=== PATIENT | female | born 1995 | race American Indian/Alaskan Native ===

== ENCOUNTER 2016-08-13 02:12 | Inpatient (IN) | payer MEDICAID ==
[2016-08-13] MEDS ORDERED: LACTATED RINGERS 500 ML IV ONE (03:03)
[2016-08-13] MEDS ORDERED: SUBLIMAZE ONE (03:37)
[2016-08-13] MEDS ORDERED: LACTATED RINGERS 1,000 ML ONE (03:44)
[2016-08-13] MEDS ORDERED: PITOCin/NS 20 UNIT/1000ML DRIP 20,000 MILLIUNITS/1,000 ML BAG IV ONE (03:45)
--- NOTE | 2016-08-13 04:10 | Procedure Note ---
OB Delivery Note - Delivery Date of Delivery: 08/13/16 Surgeon: HARRIET CARDENAS Estimated blood loss: 200cc - Vaginal Delivery presentation: vertex Delivery position: OA Intrapartum events: precipitous labor- <3hr Delivery induction: none Delivery monitor: external FHT, external uterine Route of delivery: Delivery placenta: spontaneous Delivery cord: 3 umbilical vessels Episiotomy: none Delivery laceration: none Anesthesia: none - A at 1 minute: 8 at 5 minutes: 9 Gender: Female (Del @ 04:56, weight is 6#15 or 3162 g)
--- NOTE | 2016-08-13 04:14 | History and Physical Report ---
History of Present Illness Date of examination: 08/13/16 Date of admission: 08/13/16 03:28 Chief complaint: Painful contractions History of present illness: 20 001 at 38+4 weeks presents in active labor, she to [facility] patient. Patient rapidly progressed with precipitous delivery of term infant over intact perineum. Patient gives a history of having a fainting spell in [facility], was found to have an arrhythmia and was shocked (?Cardioverted). It appears she was started on Lovenox but has not taken this in a while. I have no records at this time She does give a history of cardiac surgery in childhood, she is legally blind She is currently in normal sinus rhythm Past History Past Medical History: heart disease (oral history of Arrythmia with recent ?? cardioversion) Past Surgical History: other (cardiac surgery in infancy) [employer]ITTER [employer]TER History: denies: chlamydia, gonorrhea, hepatitis B, hepatitis C, herpes, HIV , syphilis, trichomonas Social history: single, full code. denies: smoking, alcohol abuse, prescription drug abuse, IV drug use - Obstetrical History Expected Date of Delivery: 08/23/16 Actual Gestation: 38 Week(s) 4 Day(s) : 2 Para: 1 Number of Living Children: 1 Medications and Allergies Allergies Allergy/AdvReac Type Severity Reaction Status Date / Time Neuromuscular Blockers, Allergy Unknown Verified 07/29/14 17:57 Steroidal [Steroidal Neuromuscular Blockers] Home Medications Medication Instructions Recorded Confirmed Last Taken Type Lovenox 1 dose SUB-Q BID 07/13/16 07/13/16 1 Week Ago History Pnv95/Ferrous Fumarate/FA 1 each PO DAILY 07/13/16 07/13/16 Unknown History [ Caplet] Promethazine [Phenergan TAB] 25 mg PO BID PRN 07/13/16 07/13/16 2 Weeks Ago History Nitrofurantoin [place]/M-Cryst 100 mg PO Q12HR #14 capsule 07/14/16 Unknown Rx [Macrobid CAP] diphenhydrAMINE [Benadryl CAP] 25 mg PO Q6HR PRN #10 capsule 07/14/16 Unknown Rx Review of Systems Constitutional: no fever, no chills Cardiovascular: no chest pain, no palpitations, no rapid/irregular heart beat, no syncope, no lightheadedness, no shortness of breath, no dyspnea on exertion, no paroxysmal nocturnal dyspnea, no high blood pressure Respiratory: no excessive sputum, no shortness of breath, no dyspnea on exertion Gastrointestinal: no abdominal pain, no nausea, no vomiting Genitourinary: contractions, no vaginal bleeding, no leakage of fluid - Vital Signs Vital signs: Vital Signs Pulse BP 75 129/64 08/13/16 02:27 08/13/16 02:27 Temp Pulse Resp BP Pulse Ox 75 129/64 08/13/16 02:27 08/13/16 02:27 - Physical Exam Cardiovascular: Regular rate, Normal S1, Normal S2 Lungs: Positive: Clear to auscultation, Normal air movement Abdomen: Positive: normal appearance, soft. Negative: distention, tenderness, guarding Genitourinary (Female): Positive: normal external genitalia Results Result Diagrams: 08/13/16 07:24 08/13/16 07:24 All other labs normal. Assessment and Plan PPD# 0 s/p -stable Issues -Oral hx of recent arrhythmia status post ??cardioversion ([place]) -Started on Lovenox but has not taken in the weeks -Oral history of cardiac surgery in childhood -Legally blind P: -EKG now -Obtain labs -Will start Lovenox 6 hours after delivery -Transfer to tele bed once stable -Have requested medical records -Will obtain hospitalist consult Addendum: Please note ERROR; Patient appears to have had cataract surgery not cardiac surgery. - Patient Problems (1) Precipitous delivery, delivered (current hospitalization) Current Visit: Yes Status: Acute (2) 38 weeks gestation of Current Visit: Yes Status: Acute (3) Hx of cardiac disorder Current Visit: Yes Status: Acute
[2016-08-13] MEDS ORDERED: TYLENOL PO PRN ×2 (04:19→04:21)
[2016-08-13] MEDS ORDERED: PHENERGAN PO PRN (04:19)
[2016-08-13] MEDS ORDERED: BENADRYL PO PRN (04:19)
[2016-08-13] MEDS ORDERED: DULCOLAX PR PRN (04:19)
[2016-08-13] MEDS ORDERED: DERMOPLAST TP PRN (04:19)
[2016-08-13] MEDS ORDERED: ANUCORT-HC PR PRN (04:19)
[2016-08-13] MEDS ORDERED: PHENERGAN PR PRN (04:19)
[2016-08-13] MEDS ORDERED: MILK OF MAGNESIA PO PRN (04:19)
[2016-08-13] MEDS ORDERED: LANSINOH TP PRN (04:19)
[2016-08-13] MEDS ORDERED: ZOFRAN IV PRN (04:19)
[2016-08-13] MEDS ORDERED: TUCKS PAD TP PRN (04:19)
[2016-08-13 04:36] LABS: Hematocrit 33.5 % (30.3-42.9); Hemoglobin 11.3 gm/dl (10.1-14.3); Mean Corpuscular HGB Conc 34 % (30-34); Mean Corpuscular Hemoglobin 28 pg (28-32); Mean Corpuscular Volume 83 fl (79-97); Platelet Count 284 K/mm3 (140-440); Red Blood Count 4.02 M/mm3 (3.65-5.03); Red Cell Distribution Width 14.3 % (13.2-15.2); White Blood Count 8.2 K/mm3 (4.5-11.0)
[2016-08-13] MEDS ORDERED: PITOCin/NS 20 UNIT/1000ML DRIP 20 UNITS/1,000 ML BAG IV SCH (05:00)
[2016-08-13] MEDS ORDERED: SODIUM CHLORIDE FLUSH SYRINGE 10 ML IV NR (05:00)
[2016-08-13] MEDS: NORCO 5/325 PO PRN ×2 (05:37→19:20)
[2016-08-13] MEDS ORDERED: SUBLIMAZE IV ONE (06:31)
[2016-08-13 07:37] LABS: Hematocrit 32.7 % (30.3-42.9); Hemoglobin 10.8 gm/dl (10.1-14.3); Mean Corpuscular HGB Conc 33 % (30-34); Mean Corpuscular Hemoglobin 27 pg (28-32); Mean Corpuscular Volume 83 fl (79-97); Platelet Count 264 K/mm3 (140-440); Red Blood Count 3.93 M/mm3 (3.65-5.03); Red Cell Distribution Width 14.3 % (13.2-15.2); White Blood Count 12.7 K/mm3 (4.5-11.0)
[2016-08-13 07:46] LABS: INR 0.96 (0.87-1.13)
[2016-08-13 07:47] LABS: Partial Thromboplastin Time 28.9 Sec. (24.2-36.6)
[2016-08-13 08:26] LABS: Alanine Aminotransferase 8 units/L (7-56); Alkaline Phosphatase 251 units/L (35-129); Anion Gap 18 mmol/L; BUN/Creatinine Ratio 11.66; Bilirubin,Total < 0.2 mg/dL (0.1-1.2); Blood Urea Nitrogen 7 mg/dL (7-17); Calcium 8.5 mg/dL (8.4-10.2); Carbon Dioxide 19 mmol/L (22-30); Glucose 101 mg/dL (65-100); Potassium 4.1 mmol/L (3.6-5.0); Sodium 138 mmol/L (137-145); Total Protein 6.1 g/dL (6.3-8.2)
--- NOTE | 2016-08-13 10:03 | Consultation ---
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 fib with rapid ventricular rate ,patient was noncompliant with medications Hospitalist was consulted for further evaluation of her arrhythmias as well as cardiology evaluation , And also gives some history of childhood cardiac surgery, probably congenital heart disease surgery, patient is also legally blind Patient denies any chest pain or palpitation Denies any headache dizziness weakness or numbness Denies shortness of breath EKG sinus arrhythmia, vital signs are stable Past History Past Medical History: hypertension, other (legally blind) Past Surgical History: Other (gentle heart disease surgery) Social history: single, full code. denies: smoking, alcohol abuse, prescription drug abuse, IV drug use Family history: hypertension Medications and Allergies Allergies Allergy/AdvReac Type Severity Reaction Status Date / Time Neuromuscular Blockers, Allergy Unknown Verified 07/29/14 17:57 Steroidal [Steroidal Neuromuscular Blockers] Home Medications Medication Instructions Recorded Confirmed Last Taken Type Lovenox 1 dose SUB-Q BID 07/13/16 07/13/16 1 Week Ago History Pnv95/Ferrous Fumarate/FA 1 each PO DAILY 07/13/16 07/13/16 Unknown History [ Caplet] Promethazine [Phenergan TAB] 25 mg PO BID PRN 07/13/16 07/13/16 2 Weeks Ago History Nitrofurantoin [place]/M-Cryst 100 mg PO Q12HR #14 capsule 07/14/16 Unknown Rx [Macrobid CAP] diphenhydrAMINE [Benadryl CAP] 25 mg PO Q6HR PRN #10 capsule 07/14/16 Unknown Rx Active Meds: Active Medications Acetaminophen (Tylenol) 650 mg PO Q4H PRN PRN Reason: Pain MILD(1-3)/Fever >100.5/[place]O Acetaminophen/Hydrocodone Bitart ([place] 5/325) 2 each PO Q6H PRN PRN Reason: Pain, Moderate (4-6) Last Admin: 08/13/16 05:37 Dose: 2 each Benzocaine/Menthol (Dermoplast) 1 spray TP PRN PRN PRN Reason: Episiotomy Pain Bisacodyl (Dulcolax) 10 mg [place] BID PRN PRN Reason: Constipation Diphenhydramine HCl (Benadryl) 25 mg PO Q6H PRN PRN Reason: Itching Docusate Sodium (Colace) 100 mg PO BID REPLACED BY [facility] Enoxaparin Sodium (Lovenox) 80 mg 1 mg/kg (80 mg) SUB-Q Q12HR REPLACED BY [facility] Ferrous Sulfate (Feosol) 325 mg PO BID REPLACED BY [facility] Hydrocortisone Acetate (Anucort-Hc) 25 mg [place] BID PRN PRN Reason: Hemorrhoids Oxytocin/Sodium Chloride (Pitocin/Ns 20 Unit/1000ml Drip) 20 units in 1,000 mls @ 250 mls/hr IV DIRECT EMILEE Ibuprofen (Motrin) 600 mg PO Q6H REPLACED BY [facility] Magnesium Hydroxide (Milk Of Magnesia) 30 ml PO HS PRN PRN Reason: Constipation Multi-Ingredient Ointment (Lansinoh) 1 applic TP PRN PRN PRN Reason: Sore Nipples Multivitamins/Iron/Calcium ( Vitamin) 1 each PO QDAY REPLACED BY [facility] Ondansetron HCl (Zofran) 4 mg IV Q8H PRN PRN Reason: Nausea And Vomiting Promethazine HCl (Phenergan) 25 mg [place] Q6H PRN PRN Reason: Nausea And Vomiting Promethazine HCl (Phenergan) 25 mg PO Q6H PRN PRN Reason: Nausea And Vomiting Senna/Docusate Sodium (Senokot S) 2 tab PO Q12H REPLACED BY [facility] Sodium Chloride (Sodium Chloride Flush Syringe 10 Ml) 10 ml IV PRN NR Stop: 08/14/16 04:59 Witch Samantha/Glycerin (Tucks Pad) 1 each TP PRN PRN PRN Reason: Hemorrhoid/cleansing/soothing Review of Systems Constitutional: no weight loss, no weight gain, no fever, no chills Ears, nose, mouth and throat: no nose pain, no nasal congestion Cardiovascular: no chest pain, no orthopnea, no palpitations Respiratory: no cough with sputum, no hemoptysis Gastrointestinal: no abdominal pain, no nausea, no vomiting Genitourinary Female: no pelvic pain, no dysuria Musculoskeletal: no myalgias, no arthritis Integumentary: no rash, no lesions Neurological: no weakness, no numbness, no seizures Psychiatric: no anxiety, no depression Endocrine: no cold intolerance, no heat intolerance, no polydipsia, no polyuria Hematologic/Lymphatic: no easy bruising, no easy bleeding Allergic/Immunologic: no urticaria, no allergic rhinitis Exam - Constitutional Vitals: Temp Pulse Resp BP Pulse Ox 68 131/59 08/13/16 08:03 08/13/16 08:03 General appearance: Present: no acute distress, well-nourished - EENT Eyes: Present: PERRL, EOM intact - Neck Neck: Present: supple, normal ROM - Respiratory Respiratory effort: normal Respiratory: bilateral: diminished, negative: rales, rhonchi, wheezing - Cardiovascular Rhythm: regular Heart Sounds: Present: S1 & S2 - Extremities Extremities: no ischemia, pulses intact, pulses symmetrical Peripheral Pulses: within normal limits - Abdominal General gastrointestinal: Present: soft, non-tender, non-distended, normal bowel sounds - Integumentary Integumentary: Present: clear, warm - Musculoskeletal Musculoskeletal: strength equal bilaterally, generalized weakness - Psychiatric Psychiatric: appropriate mood/affect, cooperative - Neurologic Neurologic: CNII-XII intact, moves all extremities Results - Labs CBC & Chem 7: 08/13/16 07:24 08/13/16 07:24 Labs: Abnormal lab results 08/13/16 08/13/16 Range/Units 07:24 07:24 WBC 12.7 H (4.5-11.0) K/mm3 MCH 27 L (28-32) pg Carbon Dioxide 19 L (22-30) mmol/L Creatinine 0.6 L (0.7-1.2) mg/dL Glucose 101 H (65-100) mg/dL Alkaline Phosphatase 251 H (35-129) units/L Total Protein 6.1 L (6.3-8.2) g/dL Assessment and Plan --Sinus arrhythmia on EKG No cardiac symptoms, continue supportive care --History of rapid heart rate causing syncope and cardioversion in [place] 2 months ago Probably paroxysmal atrial fibrillation, cardiology consultation Holter monitor, echocardiogram for further physical function ejection fraction --Status post vaginal delivery and state Management per THERAPEUTIC RECREATION LEADER --Mild to moderate protein calorie malnutrition and hypoalbuminemia Supportive care and nutrition supplements --DVT prophylaxis with Lovenox Consult cardiology for assistance with management Closely monitor the patient had just the management as needed Plan of care discussed with the patient as well as her nurse and also with the THERAPEUTIC RECREATION LEADER Thank you for this consultation, we will follow the patient along with you
[2016-08-13 10:23] LABS: Albumin 2.6 g/dL (3.9-5); Albumin/Globulin Ratio 0.7 %
[2016-08-13] MEDS: COLACE PO SCH ×2 (11:32→23:49)
[2016-08-13] MEDS: LOVENOX SUB-Q SCH ×2 (11:33→23:50)
[2016-08-13] MEDS: PRENATAL VITAMIN PO SCH (11:35)
[2016-08-13] MEDS: FEOSOL PO SCH ×2 (11:41→23:50)
--- NOTE | 2016-08-13 16:21 | Consultation ---
History of Present Illness Consult date: 08/13/16 Consult reason: atrial fibrillation History of present illness: This is a 20yr old woman who is legally blind and is status post vaginal delivery this morning. Review of records from [facility] shows patient had a syncopal episode at 31wks gestation of . She was found to be in atrial fibrillation of uncertain duration. During that hospitalization she underwent a CLAUDIO guided cardioversion back to a normal sinus rhythm. She was subsequently discharged home on lovenox injections twice daily. Cardiac consultation requested for cardiac evaluation post delivery. Her ECG shows a normal sinus rhythm. There were no cardiac events on telemetry monitoring. Patient is currently resting in bed comfortably. She has no chest pain, shortness of breath or palpitations. She denies dizziness. Past History Past Medical History: hypertension, other (legally blind) Past Surgical History: Other (gentle heart disease surgery) Social history: single, full code. denies: smoking, alcohol abuse, prescription drug abuse, IV drug use Family history: hypertension Medications and Allergies Allergies Allergy/AdvReac Type Severity Reaction Status Date / Time Neuromuscular Blockers, Allergy Unknown Verified 07/29/14 17:57 Steroidal [Steroidal Neuromuscular Blockers] Home Medications Medication Instructions Recorded Confirmed Last Taken Type Lovenox 1 dose SUB-Q BID 07/13/16 07/13/16 1 Week Ago History Pnv95/Ferrous Fumarate/FA 1 each PO DAILY 07/13/16 07/13/16 Unknown History [ Caplet] Promethazine [Phenergan TAB] 25 mg PO BID PRN 07/13/16 07/13/16 2 Weeks Ago History Nitrofurantoin [place]/M-Cryst 100 mg PO Q12HR #14 capsule 07/14/16 Unknown Rx [Macrobid CAP] diphenhydrAMINE [Benadryl CAP] 25 mg PO Q6HR PRN #10 capsule 07/14/16 Unknown Rx Active Meds: Active Medications Acetaminophen (Tylenol) 650 mg PO Q4H PRN PRN Reason: Pain MILD(1-3)/Fever >100.5/[place] Acetaminophen/Hydrocodone Bitart ([place] 5/325) 2 each PO Q6H PRN PRN Reason: Pain, Moderate (4-6) Last Admin: 08/13/16 05:37 Dose: 2 each Benzocaine/Menthol (Dermoplast) 1 spray TP PRN PRN PRN Reason: Episiotomy Pain Bisacodyl (Dulcolax) 10 mg [place] BID PRN PRN Reason: Constipation Diphenhydramine HCl (Benadryl) 25 mg PO Q6H PRN PRN Reason: Itching Docusate Sodium (Colace) 100 mg PO BID [facility] Last Admin: 08/13/16 11:32 Dose: 100 mg Enoxaparin Sodium (Lovenox) 80 mg 1 mg/kg (80 mg) SUB-Q Q12HR [facility] Last Admin: 08/13/16 11:33 Dose: 80 mg Ferrous Sulfate (Feosol) 325 mg PO BID [facility] Last Admin: 08/13/16 11:41 Dose: 325 mg Hydrocortisone Acetate (Anucort-Hc) 25 mg DC BID PRN PRN Reason: Hemorrhoids Oxytocin/Sodium Chloride (Pitocin/Ns 20 Unit/1000ml Drip) 20 units in 1,000 mls @ 250 mls/hr IV DIRECT [facility] Ibuprofen (Motrin) 600 mg PO Q6H [facility] Magnesium Hydroxide (Milk Of Magnesia) 30 ml PO HS PRN PRN Reason: Constipation Multi-Ingredient Ointment (Lansinoh) 1 applic TP PRN PRN PRN Reason: Sore Nipples Multivitamins/Iron/Calcium ( Vitamin) 1 each PO QDAY [facility] Last Admin: 08/13/16 11:35 Dose: 1 each Ondansetron HCl (Zofran) 4 mg IV Q8H PRN PRN Reason: Nausea And Vomiting Promethazine HCl (Phenergan) 25 mg DC Q6H PRN PRN Reason: Nausea And Vomiting Promethazine HCl (Phenergan) 25 mg PO Q6H PRN PRN Reason: Nausea And Vomiting Senna/Docusate Sodium (Senokot S) 2 tab PO Q12H [facility] Sodium Chloride (Sodium Chloride Flush Syringe 10 Ml) 10 ml IV PRN NR Stop: 08/14/16 04:59 Witch Samantha/Glycerin (Tucks Pad) 1 each TP PRN PRN PRN Reason: Hemorrhoid/cleansing/soothing Physical Examination Vital Signs Pulse BP 75 129/64 08/13/16 02:27 08/13/16 02:27 General appearance: no acute distress HEENT: Positive: PERRL Neck: Positive: trachea midline Cardiac: Positive: Reg Rate and Rhythm Results 08/13/16 07:24 08/13/16 07:24 Cardiac Enzymes 08/13/16 Range/Units 07:24 AST 14 (5-40) units/L Coagulation 08/13/16 Range/Units 07:24 PT 12.7 (12.2-14.9) Sec. INR 0.96 (0.87-1.13) APTT 28.9 (24.2-36.6) Sec. CBC 08/13/16 08/13/16 Range/Units 03:40 07:24 WBC 8.2 12.7 H (4.5-11.0) K/mm3 RBC 4.02 3.93 (3.65-5.03) M/mm3 Hgb 11.3 10.8 (10.1-14.3) gm/dl Hct 33.5 32.7 (30.3-42.9) % Plt Count 284 264 (140-440) K/mm3 Comprehensive Metabolic Panel 08/13/16 Range/Units 07:24 Sodium 138 (137-145) mmol/L Potassium 4.1 (3.6-5.0) mmol/L Chloride 105.0 (98-107) mmol/L Carbon Dioxide 19 L (22-30) mmol/L BUN 7 (7-17) mg/dL Creatinine 0.6 L (0.7-1.2) mg/dL Glucose 101 H (65-100) mg/dL Calcium 8.5 (8.4-10.2) mg/dL AST 14 (5-40) units/L ALT 8 (7-56) units/L Alkaline Phosphatase 251 H (35-129) units/L Total Protein 6.1 L (6.3-8.2) g/dL Albumin 2.6 L (3.9-5) g/dL EKG interpretations - EKG Sinus rhythms and dysrhythmias: sinus rhythm Assessment and Plan s/p vaginal delivery Hx of Afib s/p cardioversion 06/2016 currently in a normal sinus rhythm
[2016-08-13] MEDS: SENOKOT S PO SCH (21:48)
[2016-08-14] MEDS: MOTRIN PO SCH ×3 (01:01→15:40)
[2016-08-14] MEDS: SENOKOT S PO SCH ×2 (05:44→22:36)
--- NOTE | 2016-08-14 10:04 | Progress Note ---
Assessment and Plan PPD# 1 s/p -stable -Desires D/C home Issues -Oral hx of AFIB s/p cardioversion ([place]) -Lovenox 80mg BID -Oral history of Cataract surgery -Legally blind P: -Spoke with Dr. Ness of cardiology, he has cleared patient for discharge -She will be discharged home on Xarelto 15 mg daily and Metoprolol 25 mg XL daily -She will need to schedule follow-up with Dr. Ness's office on outpatient basis -Cannot breast-feed duing Xarelto administration - Patient Problems (1) Precipitous delivery, delivered (current hospitalization) Current Visit: Yes Status: Acute (2) 38 weeks gestation of Current Visit: Yes Status: Acute (3) Hx of cardiac disorder Current Visit: Yes Status: Acute Subjective - Subjective Date of service: 08/14/16 Principal diagnosis: PPD# 1 s/p , Hx of AFIB s/p cardioversion Interval history: Patient seen and examined this morning, stable doing well. No chest pain or shortness of breath, no fever or chills, ambulating without difficulty and has adequate bowel bladder function. No arrhythmias noted on telemetry during observation Has appropriate lochial flow Patient reports: appetite normal, voiding normally, pain well controlled, flatus , ambulating normally, no dizzy ambulation, no nauseated : doing well Objective - Vital Signs Latest vital signs: Vital Signs Temp Pulse Pulse Resp BP Pulse Ox 08/14/16 08:00 98.7 F 58 L 20 124/63 983 H 08/14/16 04:26 20 97 08/14/16 04:00 98.6 F 65 20 117/71 96 08/14/16 00:02 98.0 F 52 L 20 116/60 97 08/13/16 21:20 98.4 F 52 L 18 130/60 96 08/13/16 20:44 75 Intake and Output 08/13/16 08/14/16 08/14/16 22:59 06:59 14:59 Other: Voiding Method Toilet Weight 88.4 kg - Exam Abdomen: Present: normal appearance, soft. Absent: distention, tenderness, guarding, rigidity Uterus: Present: fundal height below umbilicus. Absent: tenderness Extremities: Present: normal - Labs Labs: Abnormal lab results 08/13/16 Range/Units 07:24 Albumin 2.6 L (3.9-5) g/dL
--- NOTE | 2016-08-14 10:27 | Discharge Summary ---
Providers - Providers Date of Admission: 08/13/16 03:28 Date of discharge: 08/14/16 Attending physician: HARRIET CARDENAS 08/13/16 04:21 Consult to Physician [CONS] Urgent Consulting Provider: ARABELLA HENNING Reason For Exam: oral hx of recent cardioversion Place consult to:: yes Notified:: yes 08/13/16 11:01 Consult to Physician [CONS] Routine Consulting Provider: JACINTO HENNING Reason For Exam: cardiac arrhythmia/ h/o cardioversion Place consult to:: Dr. Henning Notified:: Gaetano CABRAL Was contact made?: Yes If yes, spoke with:: Emil Estrada Time called:: 11:10 Primary care physician: HARRIET CARDENAS Hospitalization Reason for admission: active labor, IUP at term Delivery: Episiotomy: none Laceration: none Other procedures: none complications: none Discharge diagnosis: IUP at term delivered, other (Hx of AFIB) [place] baby: female Hospital course: 20 y/o admitted at 38+4 weeks presents in active labor, she is a [facility] patient. Patient rapidly progressed with subsequent precipitous delivery of term infant over intact perineum. Patient gives a history of having a "fainting spells" in [facility], was found to have an AFIB and cardioverted after work-up by cardiology in [facility]. It appears she was started on Lovenox but has not been compliant with this. She was currently in normal sinus rhythm prior to delivery , patient was admitted to telemetry floor. She was started on Lovenox 1 mg per KG twice a day. She was seen by cardiology and the hospitalist service and consult basis. Dr. Uriostegui of cardiology cleared patient for discharge. He recommends Xarelto 15 mg daily and metoprolol tartrate 25 mg XL daily Patient should schedule follow-up with him on outpatient basis Condition at discharge: Good Disposition: DISCHARGED TO HOME OR SELFCARE - Discharge Diagnoses (1) Precipitous delivery, delivered (current hospitalization) Status: Acute (2) 38 weeks gestation of Status: Acute (3) Hx of atrial fibrillation without current medication Status: Acute Plan - Discharge Medications Prescriptions: Acetaminophen [Acetaminophen SUPPOS] 325 mg [place] Q6HR PRN #30 supp PRN Reason: Pain HYDROcodone/APAP 5-325 [[place] 5/325] 1 each PO Q6HR PRN #10 tablet PRN Reason: Pain Metoprolol Xl [Metoprolol SUCCINATE ER TAB] 25 mg PO QDAY #30 tablet Multivitamin with Iron [Multivitamins with Iron] 1 each PO DAILY #30 tablet Rivaroxaban [Xarelto] 15 mg PO DAILY #30 tablet - Provider Discharge Summary Activity: no sex for 6 weeks, no heavy lifting 4 weeks, no strenuous exercise Diet: routine Instructions: other (no breast-feeding while on Xeralto) Additional instructions: [] Smoking cessation referral if applicable(refer to patient education folder for contact #) [] Refer to [facility] Booklet Call your doctor immediately for: * Fever > 100.5 * Heavy vaginal bleeding ( >1 pad per hour) * Severe persistent headache * Shortness of breath * Reddened, hot, painful area to leg or breast * Drainage or odor from incision. * Keep incision clean and dry at all times and follow doctor's instructions regarding bathing/showering - Follow up plan Follow up: HARRIET CARDENAS MD [Primary Care Provider] - 6 Weeks ELIU URIOSTEGUI MD [Staff Physician] - 7 Days
[2016-08-14] MEDS: LOVENOX SUB-Q SCH ×2 (10:33→22:35)
[2016-08-14] MEDS: FEOSOL PO SCH ×2 (10:33→22:36)
[2016-08-14] MEDS: COLACE PO SCH ×2 (10:33→22:35)
[2016-08-14] MEDS: PRENATAL VITAMIN PO SCH (10:57)
--- NOTE | 2016-08-14 13:17 | Progress Note ---
Assessment and Plan - Patient Problems (1) Paroxysmal atrial fibrillation Current Visit: Yes Status: Acute Plan to address problem: 20-year-old woman with paroxysmal atrial fibrillation, status post uncomplicated vaginal delivery at term. Her single episode of atrial fibrillation was last month while she was in [place], and she received successful direct current cardioversion. Following that, she was managed with Lovenox subcutaneous anticoagulation. Her left ventricular systolic function was reported within normal limits. On this presentation, she has been in stable sinus rhythm, no further atrial fibrillation. She has no cardiac complaints at the current time. 12-lead ECG is normal sinus rhythm, normal ECG. Recommendations: Metoprolol XL 25 mg daily, for future A. fib prophylaxis. On discharge, recommend Xarelto 15 mg by mouth daily. While on these medicines, it will be prudent to avoid breast feeding unless Xarelto is determined not to be excreted in the breast milk and significant amounts. Subjective Date of service: 08/14/16 Principal diagnosis: PPD# 1 s/p , Hx of AFIB s/p cardioversion Interval history: Patient is comfortable, looks and feels well, no acute distress. No cardiac complaints. Objective Vital Signs Temp Pulse Pulse Resp BP Pulse Ox 08/14/16 11:00 98.2 F 64 18 106/60 97 08/14/16 08:00 98.7 F 58 L 20 124/63 983 H 08/14/16 04:26 20 97 08/14/16 04:00 98.6 F 65 20 117/71 96 08/14/16 00:02 98.0 F 52 L 20 116/60 97 08/13/16 21:20 98.4 F 52 L 18 130/60 96 08/13/16 20:44 75 - Physical Examination General: No Apparent Distress HEENT: Positive: Other (legally blind) Neck: Positive: trachea midline Cardiac: Positive: Reg Rate and Rhythm Lungs: Positive: clear to auscultation Neuro: Positive: Grossly Intact Abdomen: Positive: Soft Skin: Positive: Clear Extremities: Absent: edema - EKG Sinus rhythms and dysrhythmias: sinus rhythm
--- NOTE | 2016-08-14 15:41 | Progress Note ---
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 --Mild to moderate protein calorie malnutrition and hypoalbuminemia Supportive care and nutrition supplements --DVT prophylaxis with Lovenox Continue current management Patient is medically stable for discharge Advice to follow with primary care physician and cardiology Upon discharge for further evaluation and management Thank you for this consultation, Will sign off History Interval history: Patient feels better no new complaints Denies chest pain or palpitations Awake oriented 3 not in acute distress Vital signs reviewed stable Hospitalist Physical - Constitutional Vitals: Temp Pulse Resp BP Pulse Ox 98.3 F 69 18 141/71 97 08/14/16 13:14 08/14/16 13:14 08/14/16 13:14 08/14/16 13:14 08/14/16 11:00 General appearance: Present: no acute distress, well-nourished - EENT Eyes: Present: PERRL, EOM intact - Neck Neck: Present: supple, normal ROM - Respiratory Respiratory effort: normal Respiratory: bilateral: diminished, negative: rales, rhonchi, wheezing - Cardiovascular Rhythm: regular Heart Sounds: Present: S1 & S2 - Extremities Extremities: no ischemia, pulses intact, pulses symmetrical - Abdominal General gastrointestinal: soft, non-tender, non-distended, normal bowel sounds - Integumentary Integumentary: Present: clear, warm - Psychiatric Psychiatric: appropriate mood/affect, cooperative - Neurologic Neurologic: CNII-XII intact, moves all extremities Results - Labs CBC & Chem 7: 08/13/16 07:24 08/13/16 07:24 Labs: Laboratory Last Values WBC 12.7 K/mm3 (4.5-11.0) H 08/13/16 07:24 RBC 3.93 M/mm3 (3.65-5.03) 08/13/16 07:24 Hgb 10.8 gm/dl (10.1-14.3) 08/13/16 07:24 Hct 32.7 % (30.3-42.9) 08/13/16 07:24 MCV 83 fl (79-97) 08/13/16 07:24 MCH 27 pg (28-32) L 08/13/16 07:24 MCHC 33 % (30-34) 08/13/16 07:24 RDW 14.3 % (13.2-15.2) 08/13/16 07:24 Plt Count 264 K/mm3 (140-440) 08/13/16 07:24 PT 12.7 Sec. (12.2-14.9) 08/13/16 07:24 INR 0.96 (0.87-1.13) 08/13/16 07:24 APTT 28.9 Sec. (24.2-36.6) 08/13/16 07:24 Sodium 138 mmol/L (137-145) 08/13/16 07:24 Potassium 4.1 mmol/L (3.6-5.0) 08/13/16 07:24 Chloride 105.0 mmol/L (98-107) 08/13/16 07:24 Carbon Dioxide 19 mmol/L (22-30) L 08/13/16 07:24 Anion Gap 18 mmol/L 08/13/16 07:24 BUN 7 mg/dL (7-17) 08/13/16 07:24 Creatinine 0.6 mg/dL (0.7-1.2) L 08/13/16 07:24 Estimated GFR > 60 ml/min 08/13/16 07:24 BUN/Creatinine Ratio 11.66 % 08/13/16 07:24 Glucose 101 mg/dL (65-100) H 08/13/16 07:24 Calcium 8.5 mg/dL (8.4-10.2) 08/13/16 07:24 Total Bilirubin < 0.2 mg/dL (0.1-1.2) 08/13/16 07:24 AST 14 units/L (5-40) 08/13/16 07:24 ALT 8 units/L (7-56) 08/13/16 07:24 Alkaline Phosphatase 251 units/L (35-129) H 08/13/16 07:24 Total Protein 6.1 g/dL (6.3-8.2) L 08/13/16 07:24 Albumin 2.6 g/dL (3.9-5) L 08/13/16 07:24 Albumin/Globulin Ratio 0.7 % 08/13/16 07:24 Blood Type B POSITIVE 08/13/16 03:40 Antibody Screen TNR 08/13/16 03:40 DAGO Antibody Screen Negative 08/13/16 03:40
[2016-08-14] MEDS: NORCO 5/325 PO PRN (22:37)
[2016-08-15 09:26] VITALS: BP 102/62
[2016-08-15] MEDS: LOVENOX SUB-Q SCH (10:00)
[2016-08-15] MEDS: NORCO 5/325 PO PRN (13:25)
[2016-08-15] MEDS: PRENATAL VITAMIN PO SCH (13:28)
[2016-08-15] MEDS: FEOSOL PO SCH (13:28)
== END 2016-08-15 13:50 | disposition home or self-care (01) | DRG 774 ==
LOC: TRG 02:12 → LD 03:28 → 4A 09:01 → OB 08-14 12:58
PROVIDERS: ADMIT Obstetrics & Gynecology Gynecology; ATTEND Obstetrics & Gynecology Gynecology
PROC: 10E0XZZ Delivery of Products of Conception, External Approach (ICD-10-PCS; principal; 2016-08-13)
DX: O62.3 Precipitate labor (principal); O16.4 Unspecified maternal hypertension, complicating childbirth; O75.89 Other specified complications of labor and delivery; O99.42 Diseases of the circulatory system complicating childbirth; O25.2 Malnutrition in childbirth; I48.0 Paroxysmal atrial fibrillation; Z3A.38 38 weeks gestation of pregnancy; Z37.0 Single live birth; Z88.8 Allergy status to other drugs, medicaments and biological substances; Z68.32 Body mass index [BMI] 32.0-32.9, adult
CPT/HCPCS: 36415; 80053; 85027; 85610; 85730; 86850; 86900; 86901; 93005; 93010; 99211; G0463; J1650; J2590; J3010; J7120

== ENCOUNTER 2018-06-30 17:07 | Outpatient (CLI) | payer MEDICAID ==
[2018-06-30 18:21] VITALS: BP 118/73
[2018-06-30 19:20] LABS: Bacteria,Urine 1+ /HPF (Negative); Bilirubin,Urine NEG (Negative); Blood,Urine NEG (Negative); Color,Urine Yellow (Yellow); Protein,Urine <15 mg/dL mg/dL (Negative)
[2018-06-30] MEDS ORDERED: LACTATED RINGERS 500 ML IV ONE (19:25)
[2018-06-30 19:31] LABS: Amphetamine Screen,Urine PRESUMPTIVE NEGATIVE; Benzodiazepines Screen,Urine PRESUMPTIVE NEGATIVE; Cannabinoid Screen,Urine PRESUMPTIVE NEGATIVE; Cocaine Screen,Urine PRESUMPTIVE NEGATIVE; Methadone Screen,Urine PRESUMPTIVE NEGATIVE; Opiate Screen,Urine PRESUMPTIVE NEGATIVE
== END 2018-06-30 20:10 | disposition left against medical advice (07) ==
LOC: TRG 17:07
PROVIDERS: ATTEND Obstetrics & Gynecology
DX: O47.03 False labor before 37 completed weeks of gestation, third trimester (principal); O26.893 Other specified pregnancy related conditions, third trimester; R10.9 Unspecified abdominal pain; O99.513 Diseases of the respiratory system complicating pregnancy, third trimester; J45.909 Unspecified asthma, uncomplicated; Z3A.36 36 weeks gestation of pregnancy
CPT/HCPCS: 59025; 80307; 81001

== ENCOUNTER 2019-02-17 16:44 | Emergency (ER) | payer MEDICAID ==
--- NOTE | 2019-02-17 17:03 | Event Note ---
ED Screening Note Date of service: 02/17/19 Time: 16:59 ED Screening Note: This is a 23 y.o. F. that presents to the ER with dizziness and chest pain since 1400 today. States she drunk an energy drink today and symptoms started shortly after. Denies taking anything today. This initial assessment/diagnostic orders/clinical plan/treatment(s) is/are subject to change based on patients health status, clinical progression and re- assessment by fellow clinical providers in the ED. Further treatment and workup at subsequent clinical providers discretion. Patient/guardian urged not to elope from the ED as their condition may be serious if not clinically assessed and managed. Initial orders include: UDS, EKG, & CXR
[2019-02-17] MEDS ORDERED: ANTIVERT PO ONE (18:35)
[2019-02-17] MEDS ORDERED: NACL 0.9% 1000 ML 1,000 ML IV ONE ×2 (18:35→20:28)
[2019-02-17] MEDS ORDERED: ASPIRIN PO ONE (18:35)
[2019-02-17 19:07] LABS: Basophils % (Auto) 0.8 % (0.0-1.8); Eosinophils % (Auto) 1.1 % (0.0-4.3); Hemoglobin 11.4 gm/dl (10.1-14.3); Lymphocytes # (Auto) 1.4 K/mm3 (1.2-5.4); Lymphocytes % (Auto) 35.9 % (13.4-35.0); Mean Corpuscular HGB Conc 34 % (30-34); Mean Corpuscular Volume 86 fl (79-97); Monocytes # (Auto) 0.4 K/mm3 (0.0-0.8); Monocytes % (Auto) 10.5 % (0.0-7.3); Platelet Count 305 K/mm3 (140-440); Red Blood Count 3.97 M/mm3 (3.65-5.03); Red Cell Distribution Width 13.9 % (13.2-15.2)
[2019-02-17 19:23] LABS: Alanine Aminotransferase 7 units/L (7-56); Albumin 4.1 g/dL (3.9-5); BUN/Creatinine Ratio 13; Blood Urea Nitrogen 10 mg/dL (7-17); Hemolysis Index 24
--- NOTE | 2019-02-17 19:45 | Emergency Department Report ---
ED Dizziness HPI - General Chief Complaint: Dizziness Stated Complaint: NAUSEA CHEST PAIN Time Seen by Provider: 02/17/19 16:58 Source: patient, EMS Mode of arrival: Wheelchair Limitations: No Limitations - History of Present Illness Initial Comments: Patient is a 26-year-old -[place] female with a history of A. fib and who is not on any medications at this time presents to the ED with complaint of acute onset persistent generalized weakness and fatigue, dizziness with room spinning around the last 8 hours intermittently. Patient states that she was initially on metoprolol and Lovenox but about 6 months ago she was taken off of this medication by her traumatic care physician. Patient states that she has not taken these medications now for about 6 months. Patient states that earlier today while walking to work she started feeling weak, with chest pain on exertion, fatigued and dizziness to the point of almost having a near syncopal episode. Patient denies syncope, seizures, shortness of breath, fever, chills, cough, traumatic injury, abdominal pain, dysuria, sore throat or headache, nausea and vomiting. 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 MD Complaint: dizziness, lightheadedness, other (chest pain; generalized weakness) -: Sudden, hour(s) (8) Timing: sudden onset, intermittent, waxing/waning Description: sense of movement, "room spinning", lightheadedness, off-balance History of Same: Yes (chronic A-Fib) History of Trauma: No Severity: severe Improves With: nothing Worsens With: movement Associated Symptoms: denies other symptoms, chest pain, loss of appetite, malaise, weakness. denies: ataxia, confusion, cough, diaphoresis, fever/chills, seizure, shortness of breath, syncope - Related Data Home Medications Medication Instructions Recorded Confirmed Last Taken Lovenox 1 dose SUB-Q BID 07/13/16 07/13/16 1 Week Ago ~07/06/16 Pnv No.95/Ferrous Fum/Folic AC 1 each PO DAILY 07/13/16 07/13/16 Unknown [ Caplet] Promethazine [Phenergan TAB] 25 mg PO BID PRN 07/13/16 07/13/16 2 Weeks Ago ~06/29/16 Previous Rx's Medication Instructions Recorded Last Taken Type Nitrofurantoin [place]/M-Cryst 100 mg PO Q12HR #14 capsule 07/14/16 Unknown Rx [Macrobid CAP] diphenhydrAMINE [Benadryl CAP] 25 mg PO Q6HR PRN #10 capsule 07/14/16 Unknown Rx Acetaminophen [Acetaminophen 325 mg [place] Q6HR PRN #30 supp 08/14/16 Unknown Rx SUPPOS] HYDROcodone/APAP 5-325 [[place] 1 each PO Q6HR PRN #10 tablet 08/14/16 Unknown Rx 5/325] Metoprolol Xl [Metoprolol 25 mg PO QDAY #30 tablet 08/14/16 Unknown Rx SUCCINATE ER TAB] Multivitamin with Iron 1 each PO DAILY #30 tablet 08/14/16 Unknown Rx [Multivitamins with Iron] Rivaroxaban [Xarelto] 15 mg PO DAILY #30 tablet 08/14/16 Unknown Rx Amoxicillin [Trimox CAP] 500 mg PO Q8H #30 capsule 02/17/19 Unknown Rx Meclizine [Antivert] 25 mg PO Q8H PRN #30 tablet 02/17/19 Unknown Rx Allergies Allergy/AdvReac Type Severity Reaction Status Date / Time Neuromuscular Blockers, Allergy Unknown Verified 07/29/14 17:57 Steroidal [Steroidal Neuromuscular Blockers] ED Review of Systems ROS: Stated complaint: NAUSEA CHEST PAIN Other details as noted in HPI Constitutional: malaise, weakness. denies: chills, fever Eyes: denies: eye pain, eye discharge, vision change ENT: denies: ear pain, throat pain, congestion Respiratory: denies: cough, shortness of breath, SOB with exertion, SOB at rest, wheezing Cardiovascular: chest pain, palpitations. denies: dyspnea on exertion, syncope, paroxysmal nocturnal dyspnea, other Endocrine: no symptoms reported Gastrointestinal: denies: abdominal pain, nausea, diarrhea Genitourinary: denies: urgency, dysuria, discharge Musculoskeletal: denies: back pain, joint swelling, arthralgia Skin: denies: rash, lesions Neurological: weakness, vertigo. 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 a- fib. Nystagmus - Surgical History Past Surgical History?: Yes Additional Surgical History: Catacts removed as child - Social History Smoking Status: Never Smoker Substance Use Type: None - Medications Home Medications: Home Medications Medication Instructions Recorded Confirmed Last Taken Type Lovenox 1 dose SUB-Q BID 07/13/16 07/13/16 1 Week Ago History ~07/06/16 Pnv No.95/Ferrous Fum/Folic AC 1 each PO DAILY 07/13/16 07/13/16 Unknown History [ Caplet] Promethazine [Phenergan TAB] 25 mg PO BID PRN 07/13/16 07/13/16 2 Weeks Ago History ~06/29/16 Nitrofurantoin [place]/M-Cryst 100 mg PO Q12HR #14 capsule 07/14/16 Unknown Rx [Macrobid CAP] diphenhydrAMINE [Benadryl CAP] 25 mg PO Q6HR PRN #10 capsule 07/14/16 Unknown Rx Acetaminophen [Acetaminophen 325 mg [place] Q6HR PRN #30 supp 08/14/16 Unknown Rx SUPPOS] HYDROcodone/APAP 5-325 [[place] 1 each PO Q6HR PRN #10 tablet 08/14/16 Unknown Rx 5/325] Metoprolol Xl [Metoprolol 25 mg PO QDAY #30 tablet 08/14/16 Unknown Rx SUCCINATE ER TAB] Multivitamin with Iron 1 each PO DAILY #30 tablet 08/14/16 Unknown Rx [Multivitamins with Iron] Rivaroxaban [Xarelto] 15 mg PO DAILY #30 tablet 08/14/16 Unknown Rx Amoxicillin [Trimox CAP] 500 mg PO Q8H #30 capsule 02/17/19 Unknown Rx Meclizine [Antivert] 25 mg PO Q8H PRN #30 tablet 02/17/19 Unknown Rx ED Physical Exam - General Limitations: No Limitations General appearance: alert, in no apparent distress - Head Head exam: Present: atraumatic, normocephalic, normal inspection - Eye Eye exam: Present: normal appearance, PERRL, EOMI Pupils: Present: normal accommodation - ENT ENT exam: Present: normal exam, normal orophraynx, mucous membranes moist, TM's normal bilaterally, normal external ear exam - Neck Neck exam: Present: normal inspection, full ROM - Respiratory Respiratory exam: Present: normal lung sounds bilaterally. Absent: respiratory distress, wheezes, rales, rhonchi, chest wall tenderness, accessory muscle use, decreased breath sounds, prolonged expiratory - Cardiovascular Cardiovascular Exam: Present: normal rhythm, bradycardia, normal heart sounds. Absent: systolic murmur, diastolic murmur, rubs, gallop - GI/Abdominal GI/Abdominal exam: Present: soft, normal bowel sounds. Absent: tenderness, guar ding, rebound, hyperactive bowel sounds, hypoactive bowel sounds, organomegaly - Extremities Exam Extremities exam: Present: normal inspection, full ROM, normal capillary refill - Back Exam Back exam: Present: normal inspection. Absent: full ROM, tenderness, muscle spasm, paraspinal tenderness - Neurological Exam Neurological exam: Present: alert, oriented X3, CN II-XII intact, normal gait, reflexes normal - Psychiatric Psychiatric exam: Present: normal affect, normal mood - Skin Skin exam: Present: warm, dry, intact, normal color. Absent: rash ED Course Vital Signs 02/17/19 02/17/19 02/17/19 16:58 17:55 18:00 Temperature 98.1 F Pulse Rate 54 L Pulse Rate [ Lying] Respiratory 18 Rate Blood Pressure 115/68 99/61 Blood Pressure [Left] Blood Pressure [Lying] O2 Sat by Pulse 99 100 99 Oximetry 02/17/19 02/17/19 02/17/19 18:15 18:30 18:45 Temperature Pulse Rate Pulse Rate [ Lying] Respiratory Rate Blood Pressure 100/58 99/68 107/63 Blood Pressure [Left] Blood Pressure [Lying] O2 Sat by Pulse 98 93 99 Oximetry 02/17/19 02/17/19 02/17/19 19:00 19:07 19:09 Temperature 98.9 F Pulse Rate Pulse Rate [ Lying] Respiratory 20 Rate Blood Pressure 105/65 Blood Pressure [Left] Blood Pressure [Lying] O2 Sat by Pulse 98 100 Oximetry 02/17/19 02/17/19 02/17/19 19:15 20:04 21:00 Temperature 98.1 F Pulse Rate 52 L 66 56 L Pulse Rate [ Lying] Respiratory 16 17 17 Rate Blood Pressure 113/72 103/60 Blood Pressure 108/73 [Left] Blood Pressure [Lying] O2 Sat by Pulse 100 99 100 Oximetry 02/17/19 21:52 Temperature Pulse Rate Pulse Rate [ 54 L Lying] Respiratory Rate Blood Pressure Blood Pressure [Left] Blood Pressure 105/57 [Lying] O2 Sat by Pulse Oximetry - Reevaluation(s) Reevaluation #1: 02/17/19 20:01 This is a 23-year-old female with a history of A. fib but not on any medications who presented to the ED with acute onset persistent dizziness, chest pain and generalized weakness for the last 8 hours. In the ED, patient is alert and oriented 3 and is not in distress but appears generally weak and fatigued. Patient is bradycardic in triage. Lab test results were reviewed and are all nonactionable including troponin and d-dimer levels. Chest x-ray shows no acute cardio pulmonary abnormalities. Head CT scan without contrast shows no acute intracranial abnormalities or hemorrhage. In addition, the head CT scan without contrast shows a mild anterior left ethmoid sinus disease. Paranasal sinuses are otherwise clear. Patient was treated in the ED within normal fluids, meclizine and aspirin. Additional normal saline 1 L IV bolus was given to the patient. Orthostatic blood pressure was checked and it was normal after the 2 L of fluids. On reevaluation, patient felt better, dizziness resolved with medications. Patient was discharged home on medications and advised to follow- up with her primary care physician in 7-10 days for reevaluation. 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 Ruvalcaba in the next 7-10 days for further evaluation. Patient was otherwise advised to return to the ED immediately if symptoms get worse. 02/17/19 22:00 ED Medical Decision Making - Lab Data Result diagrams: 02/17/19 18:40 02/17/19 18:40 - EKG Data EKG shows normal: sinus rhythm Rate: bradycardia - EKG Data 02/17/19 20:03 Sinus bradycardia with ventricular rate of 49 bpm, no ST or T-wave abnormalities. - Radiology Data Radiology results: report reviewed, image reviewed Findings [facility] [address] [place] [address] Cat Scan Report Signed Patient: KATELYNN SINGLETON MR#: [id number] : 1995 Acct:[id number] Age/Sex: 23 / F ADM Date: 02/17/19 Loc: ED Attending Dr: Ordering Physician: SIMON AGGARWAL Date of Service: 02/17/19 Procedure(s): CT head/brain wo con Accession Number(s): [id number] cc: SIMON AGGARWAL CT HEAD WITHOUT CONTRAST INDICATION: dizziness. TECHNIQUE: All CT scans at this location are performed using CT dose reduction for ALARA by means of automated exposure control. COMPARISON: None available. FINDINGS: HEMORRHAGE: None. EXTRA-AXIAL SPACES: Normal in size and morphology for the patient's age. VENTRICULAR SYSTEM: Normal in size and morphology for the patient's age. BRAIN PARENCHYMA: No acute findings. MIDLINE SHIFT OR HERNIATION: None. ORBITS: Normal as visualized. SOFT TISSUES OF HEAD: Normal. CALVARIUM: Normal. VISUALIZED PARANASAL SINUSES AND MASTOID AIR CELLS: There is mild anterior left ethmoid sinus disease. Paranasal sinuses are otherwise clear. ADDITIONAL FINDINGS: None. IMPRESSION: 1. There is significant motion artifact at the skull base. Accounting for this, no acute intracranial findings. Signer Name: Maury Turner MD Signed: 02/17/2019 8:14 PM Workstation Name: [id number] Transcribed By: SW Dictated By: Maury Turner MD Electronically Authenticated By: Maury Turner MD Signed Date/Time: 02/17/192013 DD/ 10 TD/TT: Findings [facility] [address] [place] [address] XRay Report Signed Patient: KATELYNN SINGLETON MR#: [id number] : 1995 Acct:[id number] Age/Sex: 23 / F ADM Date: 02/17/19 Loc: ED Attending Dr: Ordering Physician: ROB JIMENEZ Date of Service: 02/17/19 Procedure(s): XR chest 1V ap Accession Number(s): [id number] cc: ROB JIMENEZ Fluoro Time In Minutes: CHEST 1 VIEW INDICATION: Chest Pain. COMPARISON: None. FINDINGS: Support devices: None. Heart: Normal. Lungs/Pleura: No acute pulmonary or pleural findings. IMPRESSION: 1. No acute findings. Signer Name: Maury Turner MD Signed: 02/17/2019 8:19 PM Workstation Name: [id number] Transcribed By: ELISSA Dictated By: Maury Turner MD Electronically Authenticated By: Maury Turner MD Signed Date/Time: 02/17/192018 DD/ 18 TD/TT: - Medical Decision Making This is a 23-year-old female with a history of A. fib but not on any medications who presented to the ED with acute onset persistent dizziness, chest pain and generalized weakness for the last 8 hours. In the ED, patient is alert and oriented 3 and is not in distress but appears generally weak and fatigued. Patient is bradycardic in triage. Lab test results were reviewed and are all nonactionable including troponin and d-dimer levels. Chest x-ray shows no acute cardio pulmonary abnormalities. Head CT scan without contrast shows no acute intracranial abnormalities or hemorrhage. In addition, the head CT scan without contrast shows a mild anterior left ethmoid sinus disease. Paranasal sinuses are otherwise clear. Patient was treated in the ED within normal fluids, meclizine and aspirin. Additional normal saline 1 L IV bolus was given to the patient. Orthostatic blood pressure was checked and it was normal after the 2 L of fluids. On reevaluation, patient felt better, dizziness resolved with medications. Patient was discharged home on medications and advised to follow- up with her primary care physician in 7-10 days for reevaluation. 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 Ruvalcaba in the next 7-10 days for further evaluation. Patient was otherwise advised to return to the ED immediately if symptoms get worse. - Differential Diagnosis Dizziness; Generalized weakness; Nonspecific chest pain Critical care attestation.: If time is entered above; I have spent that time in minutes in the direct care of this critically ill patient, excluding procedure time. ED Disposition Clinical Impression: Dizziness and giddiness, Nonspecific chest pain, Generalized weakness, Chronic ethmoidal sinusitis, Dehydration Disposition: TO HOME OR SELFCARE Is pt being admited?: No Does the pt Need Aspirin: No Condition: Stable Instructions: Chest Pain (ED), Dizziness (ED), Vertigo (ED) Additional Instructions: Take medications with food, drink plenty of fluids and follow-up with your primary care physician in 7-10 days for reevaluation. Consider following up with your hydraulic bull riveter operator Dr. Ruvalcaba for further evaluation Prescriptions: Meclizine [Antivert] 25 mg PO Q8H PRN #30 tablet PRN Reason: Vertigo Amoxicillin [Trimox CAP] 500 mg PO Q8H #30 capsule Referrals: NIKHIL PRICE MD [Primary Care Provider] - 3-5 Days Time of Disposition: 20:05 Print Language: TURKISH
[2019-02-17 19:56] LABS: Bilirubin,Urine NEG (Negative); Blood,Urine NEG (Negative); Color,Urine Yellow (Yellow); Mucus,Urine FEW /HPF; Protein,Urine <15 mg/dL mg/dL (Negative); Urobilinogen,Urine < 2.0 mg/dL (<2.0)
[2019-02-17 20:05] LABS: Amphetamine Screen,Urine PRESUMPTIVE NEGATIVE; Benzodiazepines Screen,Urine PRESUMPTIVE NEGATIVE; Cannabinoid Screen,Urine PRESUMPTIVE NEGATIVE; Cocaine Screen,Urine PRESUMPTIVE NEGATIVE; Methadone Screen,Urine PRESUMPTIVE NEGATIVE; Opiate Screen,Urine PRESUMPTIVE NEGATIVE
--- NOTE | 2019-02-17 20:18 | Cat Scan Report ---
CT HEAD WITHOUT CONTRAST INDICATION: dizziness. TECHNIQUE: All CT scans at this location are performed using CT dose reduction for ALARA by means of automated e xposure control. COMPARISON: None available. FINDINGS: HEMORRHAGE: None. EXTRA-AXIAL SPACES: Normal in size and morphology for the patient's age. VENTRICULAR SYSTEM: Normal in size and morphology for the patient's age. BRAIN PARENCHYMA: No acute findings. MIDLINE SHIFT OR HERNIATION: None. ORBITS: Normal as visualized. SOFT TISSUES OF HEAD: Normal. CALVARIUM: Normal. VISUALIZED PARANASAL SINUSES AND MASTOID AIR CELLS: There is mild anterior left ethmoid sinus disease . Paranasal sinuses are otherwise clear. ADDITIONAL FINDINGS: None. IMPRESSION: 1. There is significant motion artifact at the skull base. Accounting for this, no acute intracranial findings. Signer Name: Maury Turner MD Signed: 02/17/2019 8:14 PM Workstation Name: [id number]
--- NOTE | 2019-02-17 20:23 | XRay Report ---
CHEST 1 VIEW INDICATION: Chest Pain. COMPARISON: None. FINDINGS: Support devices: None. Heart: Normal. Lungs/Pleura: No acute pulmonary or pleural findings. IMPRESSION: 1. No acute findings. Signer Name: Maury Turner MD Signed: 02/17/2019 8:19 PM Workstation Name: [id number]
[2019-02-17 23:14] VITALS: BP 106/66
== END 2019-02-17 22:48 | disposition home or self-care (01) ==
LOC: ED 16:44
DX: J32.2 Chronic ethmoidal sinusitis (principal); E86.0 Dehydration; R42 Dizziness and giddiness; R07.9 Chest pain, unspecified; R53.1 Weakness; J45.909 Unspecified asthma, uncomplicated; Z88.8 Allergy status to other drugs, medicaments and biological substances
CPT/HCPCS: 36415; 70450; 71045; 80053; 80307; 81001; 84484; 84703; 85025; 85379; 93005; 93010; 96360; 96361; 99285; J7030

== ENCOUNTER 2019-03-01 13:32 | Emergency (ER) | payer MEDICAID ==
--- NOTE | 2019-03-01 14:13 | Emergency Department Report ---
ED Psych HPI - General Chief Complaint: Psych Stated Complaint: DEPRESSION Time Seen by Provider: 03/01/19 14:03 Source: patient Mode of arrival: Ambulatory - History of Present Illness Initial Comments: 23 yo female went to [place] for help today with her MD but they dont take medicaid so they sent her here. Pt had a baby in July; since that shes been off her antidepressants. She was on zoloft and seroquel She has been preg 3 times and has 3 kids. LMP 10- She also reports her dad dying in July- she teared up discussing. Mom at bedside with her. Dad of CHF. She report thoughts of hurting herself with no plan. [facility] MD CHF with afib during her legally blind having had 5 eye surgeries as a child denies cig/etoh or drugs [facility] eye surgery x 5 Rx daily none MD Complaint: suicidal ideation, feels depressed -: Gradual Associated Psychiatric Symptoms: depression, suicidal ideation History of same: Yes Quality: constant Improves With: medication Context: not taking psychiatric Associated Symptoms: denies other symptoms Treatments Prior to Arrival: none If Self Harm: admits thoughts of - Related Data Allergies Allergy/AdvReac Type Severity Reaction Status Date / Time Neuromuscular Blockers, Allergy Unknown Verified 07/29/14 17:57 Steroidal [Steroidal Neuromuscular Blockers] ED Review of Systems ROS: Stated complaint: DEPRESSION Other details as noted in HPI Comment: All other systems reviewed and negative ED Past Medical Hx - Past Medical History Hx Hypertension: No Hx CVA: No Hx Heart Attack/AMI: No Hx Congestive Heart Failure: No (pt Dx with Arrhythmias) Hx Diabetes: No Hx Deep Vein Thrombosis: No Hx Pulmonary Embolism: No Hx GERD: No Hx Liver Disease: No Hx Renal Disease: No Hx of Cancer: No Hx Sickle Cell Disease: No Hx Arthritis: No Hx Headaches / Migraines: No Hx Seizures: No Hx Kidney Stones: No Hx Psychiatric Treatment: No Hx Asthma: Yes (as a child) Hx COPD: No Hx HIV: No Additional medical history: 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 a-fib. Nystagmus - Surgical History Past Surgical History?: Yes Additional Surgical History: Catacts removed as child - Family History Family history: no significant - Social History Smoking Status: Never Smoker Substance Use Type: None ED Physical Exam - General Limitations: Other General appearance: alert, in no apparent distress - Head Head exam: Present: atraumatic, normocephalic - Eye Eye exam: Present: normal appearance - ENT ENT exam: Present: mucous membranes moist - Neck Neck exam: Present: normal inspection - Respiratory Respiratory exam: Present: normal lung sounds bilaterally. Absent: respiratory distress - Cardiovascular Cardiovascular Exam: Present: regular rate, normal rhythm. Absent: systolic murmur, diastolic murmur, rubs, gallop - GI/Abdominal GI/Abdominal exam: Present: soft, normal bowel sounds - Extremities Exam Extremities exam: Present: normal inspection - Back Exam Back exam: Present: normal inspection - Neurological Exam Neurological exam: Present: alert, oriented X3 - Psychiatric Psychiatric exam: Present: depressed, anxious, flat affect - Skin Skin exam: Present: warm, dry, intact, normal color. Absent: rash ED Course Vital Signs 03/01/19 13:43 Temperature 98.7 F Pulse Rate 62 Respiratory 16 Rate Blood Pressure 116/73 O2 Sat by Pulse 99 Oximetry ED Medical Decision Making - Lab Data Result diagrams: 03/01/19 13:49 03/01/19 13:49 - EKG Data EKG shows normal: sinus rhythm - EKG Data When compared to previous EKG there are: no significant change Interpretation: no acute changes - Medical Decision Making Labs 03/01/19 03/01/19 03/01/19 13:49 13:49 13:49 WBC RBC Hgb Hct MCV MCH MCHC RDW Plt Count Lymph % (Auto) [place] % (Auto) Eos % (Auto) Baso % (Auto) Lymph # [place] # Eos # Baso # Seg Neutrophils % Seg Neutrophils # PT INR APTT Sodium 137 Potassium 4.3 Chloride 102.9 Carbon Dioxide 23 Anion Gap 15 BUN 11 Creatinine 0.7 Estimated GFR > 60 BUN/Creatinine Ratio 16 Glucose 85 Calcium 9.6 HCG, Qual Urine Color Urine Turbidity Urine pH Ur Specific [place] Urine Protein Urine Glucose (UA) Urine Ketones Urine Blood Urine Nitrite Urine Bilirubin Urine Urobilinogen Ur Leukocyte Esterase Urine WBC (Auto) Urine RBC (Auto) U Epithel Cells (Auto) Urine Bacteria (Auto) Salicylates < 0.3 L Urine Opiates Screen Urine Methadone Screen Acetaminophen < 5.0 L Ur Barbiturates Screen Ur Phencyclidine Scrn Ur Amphetamines Screen U Benzodiazepines Scrn Urine Cocaine Screen U Marijuana (THC) Screen Drugs of Abuse Note Plasma/Serum Alcohol 1003/01/19 03/01/19 13:49 13:49 14:30 WBC 3.4 L RBC 4.30 Hgb 12.1 Hct 37.1 MCV 86 MCH 28 MCHC 33 RDW 14.0 Plt Count 230 Lymph % (Auto) 45.3 H [place] % (Auto) 9.3 H Eos % (Auto) 1.3 Baso % (Auto) 1.1 Lymph # 1.6 [place] # 0.3 Eos # 0.0 Baso # 0.0 Seg Neutrophils % 43.0 Seg Neutrophils # 1.5 L PT INR APTT Sodium Potassium Chloride Carbon Dioxide Anion Gap BUN Creatinine Estimated GFR BUN/Creatinine Ratio Glucose Calcium HCG, Qual Urine Color Yellow Urine Turbidity Clear Urine pH 5.0 Ur Specific [place] 1.025 Urine Protein <15 mg/dl Urine Glucose (UA) Neg Urine Ketones Neg Urine Blood Neg Urine Nitrite Neg Urine Bilirubin Neg Urine Urobilinogen < 2.0 Ur Leukocyte Esterase Neg Urine WBC (Auto) 1.0 Urine RBC (Auto) 2.0 U Epithel Cells (Auto) 9.0 Urine Bacteria (Auto) 1+ Salicylates Urine Opiates Screen Urine Methadone Screen Acetaminophen Ur Barbiturates Screen Ur Phencyclidine Scrn Ur Amphetamines Screen U Benzodiazepines Scrn Urine Cocaine Screen U Marijuana (THC) Screen Drugs of Abuse Note Plasma/Serum Alcohol < 0.01 03/01/19 03/01/19 03/01/19 14:30 14:33 14:58 WBC RBC Hgb Hct MCV MCH MCHC RDW Plt Count Lymph % (Auto) [place] % (Auto) Eos % (Auto) Baso % (Auto) Lymph # [place] # Eos # Baso # Seg Neutrophils % Seg Neutrophils # PT 13.2 INR 1.01 APTT 31.8 Sodium Potassium Chloride Carbon Dioxide Anion Gap BUN Creatinine Estimated GFR BUN/Creatinine Ratio Glucose Calcium HCG, Qual Negative Urine Color Urine Turbidity Urine pH Ur Specific [place] Urine Protein Urine Glucose (UA) Urine Ketones Urine Blood Urine Nitrite Urine Bilirubin Urine Urobilinogen Ur Leukocyte Esterase Urine WBC (Auto) Urine RBC (Auto) U Epithel Cells (Auto) Urine Bacteria (Auto) Salicylates Urine Opiates Screen Presumptive negative Urine Methadone Screen Presumptive negative Acetaminophen Ur Barbiturates Screen Presumptive negative Ur Phencyclidine Scrn Presumptive negative Ur Amphetamines Screen Presumptive negative U Benzodiazepines Scrn Presumptive negative Urine Cocaine Screen Presumptive negative U Marijuana (THC) Screen Presumptive negative Drugs of Abuse Note Disclamer Plasma/Serum Alcohol Vital Signs 03/01/19 13:43 Temperature 98.7 F Pulse Rate 62 Respiratory 16 Rate Blood Pressure 116/73 O2 Sat by Pulse 99 Oximetry 1013 for pt safety SI with no plan labs noted ua noted ekg SR with PAC's; NO afib dispo per [facility] eval. - Differential Diagnosis depression with SI, no plan Critical care attestation.: If time is entered above; I have spent that time in minutes in the direct care of this critically ill patient, excluding procedure time. ED Disposition Clinical Impression: Suicidal ideation, Depressed affect Disposition: DC/TX-65 PSY HOSP/PSY UNIT Is pt being admited?: No Does the pt Need Aspirin: No Condition: Stable Time of Disposition: 16:14
[2019-03-01 14:15] LABS: Basophils % (Auto) 1.1 % (0.0-1.8); Eosinophils % (Auto) 1.3 % (0.0-4.3); Hematocrit 37.1 % (30.3-42.9); Hemoglobin 12.1 gm/dl (10.1-14.3); Lymphocytes # (Auto) 1.6 K/mm3 (1.2-5.4); Lymphocytes % (Auto) 45.3 % (13.4-35.0); Mean Corpuscular HGB Conc 33 % (30-34); Mean Corpuscular Volume 86 fl (79-97); Monocytes # (Auto) 0.3 K/mm3 (0.0-0.8); Monocytes % (Auto) 9.3 % (0.0-7.3); Platelet Count 230 K/mm3 (140-440)
[2019-03-01 14:36] LABS: BUN/Creatinine Ratio 16; Blood Urea Nitrogen 11 mg/dL (7-17); Calcium 9.6 mg/dL (8.4-10.2); Hemolysis Index 5
[2019-03-01 15:00] LABS: Bacteria,Urine 1+ /HPF (Negative); Bilirubin,Urine NEG (Negative); Blood,Urine NEG (Negative); Color,Urine Yellow (Yellow); Protein,Urine <15 mg/dL mg/dL (Negative); Urobilinogen,Urine < 2.0 mg/dL (<2.0)
[2019-03-01 15:07] LABS: Amphetamine Screen,Urine PRESUMPTIVE NEGATIVE; Benzodiazepines Screen,Urine PRESUMPTIVE NEGATIVE; Cannabinoid Screen,Urine PRESUMPTIVE NEGATIVE; Cocaine Screen,Urine PRESUMPTIVE NEGATIVE; Methadone Screen,Urine PRESUMPTIVE NEGATIVE; Opiate Screen,Urine PRESUMPTIVE NEGATIVE
[2019-03-01 15:28] LABS: INR 1.01 (0.87-1.13)
[2019-03-01 15:29] LABS: Partial Thromboplastin Time 31.8 Sec. (24.2-36.6)
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
[2019-03-02 20:12] VITALS: BP 121/61
[2019-03-02] MEDS ORDERED: REMERON PO SCH (22:00)
[2019-03-02] MEDS ORDERED: REMERON ONE (22:58)
== END 2019-03-02 20:09 ==
LOC: ED 13:32 → EEVIPCON 13:32 → ED 03-02 20:09
DX: F32.9 Major depressive disorder, single episode, unspecified (principal); J45.909 Unspecified asthma, uncomplicated; Z88.8 Allergy status to other drugs, medicaments and biological substances; Z98.890 Other specified postprocedural states
CPT/HCPCS: 36415; 80048; 80307; 80320; 81001; 84703; 85025; 85610; 85730; 93005; 93010; G0480

== ENCOUNTER 2019-03-27 10:27 | Emergency (ER) | payer MEDICAID ==
[2019-03-27 10:36] VITALS: BP 109/62
[2019-03-27] MEDS ORDERED: TETRACAINE 0.5% OPHTH SOLN 4ML OU STA (13:08)
[2019-03-27] MEDS ORDERED: TETRACAINE 0.5% OPHTH SOLN 4ML ONE (13:10)
--- NOTE | 2019-03-27 15:40 | Emergency Department Report ---
ED Eye Problem HPI - General Chief complaint: Eye Problems Stated complaint: RT EYE DISCHARGE Time Seen by Provider: 03/27/19 12:47 Source: patient Mode of arrival: Ambulatory Limitations: No Limitations - Related Data Previous Rx's Medication Instructions Recorded Last Taken Type Tobramycin 0.3% [Tobrex] 1 applicatio OS Q8HR #1 tube 03/27/19 Unknown Rx Allergies Allergy/AdvReac Type Severity Reaction Status Date / Time Neuromuscular Blockers, Allergy Unknown Verified 07/29/14 17:57 Steroidal [Steroidal Neuromuscular Blockers] ED Review of Systems ROS: Stated complaint: RT EYE DISCHARGE Other details as noted in HPI ED Past Medical Hx - Past Medical History Hx Hypertension: No Hx CVA: No Hx Heart Attack/AMI: No Hx Congestive Heart Failure: No (pt Dx with Arrhythmias) Hx Diabetes: No Hx Deep Vein Thrombosis: No Hx Pulmonary Embolism: No Hx GERD: No Hx Liver Disease: No Hx Renal Disease: No Hx Sickle Cell Disease: No Hx Arthritis: No Hx Headaches / Migraines: No Hx Seizures: No Hx Kidney Stones: No Hx Psychiatric Treatment: No Hx Asthma: Yes (as a child) Hx COPD: No Hx HIV: No Additional medical history: 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 a- fib. Nystagmus - Surgical History Additional Surgical History: Catacts removed as child - Social History Smoking Status: Never Smoker Substance Use Type: None - Medications Home Medications: Home Medications Medication Instructions Recorded Confirmed Last Taken Type Tobramycin 0.3% [Tobrex] 1 applicatio OS Q8HR #1 tube 03/27/19 Unknown Rx ED Physical Exam - General Limitations: No Limitations ED Course Vital Signs 03/27/19 03/27/19 10:35 15:01 Temperature 98.2 F 98.2 F Pulse Rate 79 79 Respiratory 20 20 Rate Blood Pressure 109/62 O2 Sat by Pulse 97 97 Oximetry Critical care attestation.: If time is entered above; I have spent that time in minutes in the direct care of this critically ill patient, excluding procedure time. ED Disposition Disposition: DC-01 TO HOME OR SELFCARE Condition: Stable Instructions: Conjunctivitis (ED) Additional Instructions: Your Robert-Pen readings were normal today please follow up with filler leaf cutter long for further evaluation and treatment of your conjunctivitis on a evolving right eye glaucoma Prescriptions: Tobramycin 0.3% [Tobrex] 1 applicatio OS Q8HR #1 tube Referrals: PRIMARY CAREMD [Primary Care Provider] - 3-5 Days CHANG MENDOZA MD [Staff Physician] - 3-5 Days
== END 2019-03-27 15:32 | disposition home or self-care (01) ==
LOC: ED 10:27
DX: H57.89 Other specified disorders of eye and adnexa (principal); J45.909 Unspecified asthma, uncomplicated; I48.91 Unspecified atrial fibrillation; Z79.899 Other long term (current) drug therapy; Z88.8 Allergy status to other drugs, medicaments and biological substances

== ENCOUNTER 2019-05-15 12:45 | Emergency (ER) | payer MEDICAID ==
[2019-05-15 14:27] VITALS: BP 113/60
--- NOTE | 2019-05-15 14:27 | Emergency Department Report ---
Blank Doc - Documentation Documentation: 23 Y/O FEMALE PRESENTS WITH 5 DAY HISTORY OF ABDOMINAL / PELVIC PAIN ASSOCIATED WITH INCREASE URINARY URGENCY. NO VAGINAL BLEEDING. NO CHEST PAIN OR SOB. The patient was seen in triage for ABDOMINAL PAIN Labs/imaging ordered to evaluate for a cause of this complaint. Vital signs reviewed, patient awake and alert in NAD.
[2019-05-15 15:01] LABS: HCG Qualitative,Urine Positive (Negative)
[2019-05-15 15:05] LABS: Bacteria,Urine 1+ /HPF (Negative); Bilirubin,Urine NEG (Negative); Blood,Urine NEG (Negative); Color,Urine Yellow (Yellow); Mucus,Urine 2+ /HPF; Urobilinogen,Urine < 2.0 mg/dL (<2.0)
[2019-05-15 15:06] LABS: Basophils # (Auto) 0.1 K/mm3 (0.0-0.1); Basophils % (Auto) 1.1 % (0.0-1.8); Eosinophils % (Auto) 0.8 % (0.0-4.3); Hematocrit 38.4 % (30.3-42.9); Hemoglobin 12.9 gm/dl (10.1-14.3); Lymphocytes # (Auto) 1.3 K/mm3 (1.2-5.4); Lymphocytes % (Auto) 23.3 % (13.4-35.0); Mean Corpuscular HGB Conc 34 % (30-34); Mean Corpuscular Volume 85 fl (79-97); Monocytes # (Auto) 0.4 K/mm3 (0.0-0.8); Monocytes % (Auto) 7.2 % (0.0-7.3); Platelet Count 273 K/mm3 (140-440); Red Blood Count 4.51 M/mm3 (3.65-5.03); Red Cell Distribution Width 14.3 % (13.2-15.2)
[2019-05-15 15:39] LABS: Alanine Aminotransferase 9 units/L (7-56); Albumin 4.3 g/dL (3.9-5); BUN/Creatinine Ratio 14; Blood Urea Nitrogen 11 mg/dL (7-17); Calcium 10.2 mg/dL (8.4-10.2); Hemolysis Index 13
[2019-05-15 15:42] LABS: Bilirubin,Direct < 0.2 mg/dL (0-0.2)
--- NOTE | 2019-05-15 17:02 | Emergency Department Report ---
ED Abdominal Pain HPI - General Chief Complaint: Abdominal Pain Stated Complaint: ABD PAIN/PELVIC PAIN Time Seen by Provider: 05/15/19 14:26 Source: patient Mode of arrival: Ambulatory Limitations: No Limitations - History of Present Illness Initial Comments: 23 YO AA FEMALE COMES TO ER WITH NAUSEA AND PELVIC CRAMPS FOR 2 DAYS. SHE IS CONCERNED SHE IS PREG. SHE THINKS LMP WAS 12/1. NAUSEA BUT NO VOMITING. NAD. AMBULATORY AND NON TOXIC ON EXAM - Related Data Previous Rx's Medication Instructions Recorded Last Taken Type Tobramycin 0.3% [Tobrex] 1 applicatio OS Q8HR #1 tube 03/27/19 Unknown Rx Allergies Allergy/AdvReac Type Severity Reaction Status Date / Time Neuromuscular Blockers, Allergy Unknown Verified 07/29/14 17:57 Steroidal [Steroidal Neuromuscular Blockers] ED Review of Systems ROS: Stated complaint: ABD PAIN/PELVIC PAIN Other details as noted in HPI Comment: All other systems reviewed and negative ED Past Medical Hx - Past Medical History Previous Medical History?: Yes Hx Hypertension: No Hx CVA: No Hx Heart Attack/AMI: No Hx Congestive Heart Failure: No (pt Dx with Arrhythmias) Hx Diabetes: No Hx Deep Vein Thrombosis: No Hx Pulmonary Embolism: No Hx GERD: No Hx Liver Disease: No Hx Renal Disease: No Hx Sickle Cell Disease: No Hx Arthritis: No Hx Headaches / Migraines: No Hx Seizures: No Hx Kidney Stones: No Hx Psychiatric Treatment: No Hx Asthma: Yes (as a child) Hx COPD: No Hx HIV: No Additional medical history: 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 a- fib. Nystagmus - Surgical History Past Surgical History?: Yes Additional Surgical History: Cataracts removed as child - Social History Smoking Status: Never Smoker Substance Use Type: None - Medications Home Medications: Home Medications Medication Instructions Recorded Confirmed Last Taken Type Tobramycin 0.3% [Tobrex] 1 applicatio OS Q8HR #1 tube 03/27/19 Unknown Rx ED Physical Exam - General Limitations: No Limitations General appearance: alert, in no apparent distress - Head Head exam: Present: atraumatic, normocephalic - Eye Eye exam: Present: nystagmus - ENT ENT exam: Present: mucous membranes moist - Neck Neck exam: Present: normal inspection - Respiratory Respiratory exam: Present: normal lung sounds bilaterally. Absent: respiratory distress - Cardiovascular Cardiovascular Exam: Present: regular rate, normal rhythm. Absent: systolic murmur, diastolic murmur, rubs, gallop - GI/Abdominal GI/Abdominal exam: Present: soft, normal bowel sounds - Extremities Exam Extremities exam: Present: normal inspection - Back Exam Back exam: Present: normal inspection - Neurological Exam Neurological exam: Present: alert, oriented X3 - Psychiatric Psychiatric exam: Present: normal affect, normal mood - Skin Skin exam: Present: warm, dry, intact, normal color. Absent: rash ED Course Vital Signs 05/15/19 14:26 Temperature 98.7 F Pulse Rate 80 Respiratory 20 Rate Blood Pressure 113/60 O2 Sat by Pulse 98 Oximetry ED Medical Decision Making - Lab Data Result diagrams: 05/15/19 14:56 05/15/19 14:56 - Radiology Data Radiology results: report reviewed, image reviewed - Medical Decision Making Lab Results 05/15/19 05/15/19 05/15/19 Range/Units 14:44 14:56 14:56 WBC 5.4 (4.5-11.0) K/mm3 RBC 4.51 (3.65-5.03) M/mm3 Hgb 12.9 (10.1-14.3) gm/dl Hct 38.4 (30.3-42.9) % MCV 85 (79-97) fl MCH 29 (28-32) pg MCHC 34 (30-34) % RDW 14.3 (13.2-15.2) % Plt Count 273 (140-440) K/mm3 Lymph % (Auto) 23.3 (13.4-35.0) % [place] % (Auto) 7.2 (0.0-7.3) % Eos % (Auto) 0.8 (0.0-4.3) % Baso % (Auto) 1.1 (0.0-1.8) % Lymph # 1.3 (1.2-5.4) K/mm3 [place] # 0.4 (0.0-0.8) K/mm3 Eos # 0.0 (0.0-0.4) K/mm3 Baso # 0.1 (0.0-0.1) K/mm3 Seg Neutrophils % 67.6 (40.0-70.0) % Seg Neutrophils # 3.6 (1.8-7.7) K/mm3 Sodium 139 (137-145) mmol/L Potassium 4.5 (3.6-5.0) mmol/L Chloride 103.5 (98-107) mmol/L Carbon Dioxide 21 L (22-30) mmol/L Anion Gap 19 mmol/L BUN 11 (7-17) mg/dL Creatinine 0.8 (0.7-1.2) mg/dL Estimated GFR > 60 ml/min BUN/Creatinine Ratio 14 % Glucose 85 (65-100) mg/dL Calcium 10.2 (8.4-10.2) mg/dL Total Bilirubin 0.30 (0.1-1.2) mg/dL Direct Bilirubin < 0.2 (0-0.2) mg/dL Indirect Bilirubin 0.1 mg/dL AST 13 (5-40) units/L ALT 9 (7-56) units/L Alkaline Phosphatase 48 (35-129) units/L Total Protein 7.3 (6.3-8.2) g/dL Albumin 4.3 (3.9-5) g/dL Albumin/Globulin Ratio 1.4 % Lipase 26 (13-60) units/L Urine Color Yellow (Yellow) Urine Turbidity Slightly-cloudy (Clear) Urine pH 5.0 (5.0-7.0) Ur Specific [place] 1.033 H (1.003-1.030) Urine Protein 30 mg/dl (Negative) mg/dL Urine Glucose (UA) Neg (Negative) mg/dL Urine Ketones Tr (Negative) mg/dL Urine Blood Neg (Negative) Urine Nitrite Neg (Negative) Ur Reducing Substances Not Reportable Urine Bilirubin Neg (Negative) Urine Ictotest Not Reportable Urine Urobilinogen < 2.0 (<2.0) mg/dL Ur Leukocyte Esterase Sm (Negative) Urine WBC (Auto) 8.0 H (0.0-6.0) /HPF Urine RBC (Auto) 3.0 (0.0-6.0) /HPF U Epithel Cells (Auto) 22.0 H (0-13.0) /HPF Urine Bacteria (Auto) 1+ (Negative) /HPF Urine Mucus 2+ /HPF Urine HCG, Qual Positive A (Negative) Vital Signs 05/15/19 14:26 Temperature 98.7 F Pulse Rate 80 Respiratory 20 Rate Blood Pressure 113/60 O2 Sat by Pulse 98 Oximetry POS URINE PREG BETA QUANT ADDED ON RH POS US NOTED SHE THINKS LMP 12 NO VAG BLEED OR DC HER ABD EXAM IS NOT IMPRESSIVE. SHE HAS NO PAIN ON PALP. PT HAS BEEN EDUCATED ABOUT U/S AND IMPORT OF FOLLOW UP IN 48 HOURS SHE VERBALIZES UNDERSTANDING DC HOME WITH FAMILY AND FOLLOW UP IN 48 HOURS. - Differential Diagnosis PREG/ECTOPIC Critical care attestation.: If time is entered above; I have spent that time in minutes in the direct care of this critically ill patient, excluding procedure time. ED Disposition Clinical Impression: , Lesion of right ovary Disposition: DC-01 TO HOME OR SELFCARE Is pt being admited?: No Does the pt Need Aspirin: No Condition: Stable Instructions: (ED) Additional Instructions: PELVIC REST TYLENOL FOR PAIN FOLLOW UP WITH OBGYN IN 48 HOURS Referrals: JULY LOPES MD [Staff Physician] - 3-5 Days JI VALENTINO MD [Staff Physician] - 3-5 Days Time of Disposition: 17:39
--- NOTE | 2019-05-15 17:27 | Ultrasound Report ---
US OB transvaginal, US OB <= 14 weeks fetus INDICATION / CLINICAL INFORMATION: pelvic pain and . COMPARISON: None available. FINDINGS: Transabdominal and transvaginal imaging was performed. Uterus measures 10.1 x 5.7 x 7.0 cm. Endometrium is thickened at 2.7 cm. No intrauterine gestational sac is seen. There is a cystic and solid lesion in the right ovary which measures 1.8 x 1.7 x 1.6 cm. There is no flow seen within the soft tissue component. A cyst measuring 2 cm in the right ovary. Left ovary is unremarkable. Trace free fluid is noted in the cul-de-sac. IMPRESSION: 1. No sonographic evidence of intrauterine . 2. In addition to a 2 cm simple cyst in the right ovary, there is a 1.8 cm complex solid and cystic l esion. This appears to be in the right ovary rather than right adnexa. This may be a complex ovarian cyst. Ectopic pregnancies in the ovary are exceedingly rare. However, correlation with serial beta hC G levels and short-term sonographic follow-up is recommended. 3. Small amount of free fluid in the cul-de-sac. Signer Name: Maury Turner MD Signed: 05/15/2019 5:22 PM Workstation Name: [id number]
== END 2019-05-15 16:50 | disposition home or self-care (01) ==
LOC: ED 12:45
DX: O26.891 Other specified pregnancy related conditions, first trimester (principal); N83.8 Other noninflammatory disorders of ovary, fallopian tube and broad ligament; J45.909 Unspecified asthma, uncomplicated; Z3A.01 Less than 8 weeks gestation of pregnancy
CPT/HCPCS: 36415; 76801; 76817; 80048; 80076; 81001; 81025; 83690; 84702; 85025; 86900; 86901; 99284

== ENCOUNTER 2019-05-27 17:59 | Emergency (ER) | payer MEDICAID ==
--- NOTE | 2019-05-27 18:25 | Emergency Department Report ---
Blank Doc - Documentation Documentation: 23-year-old female that presents with n/v and dizziness. Stated is 7 weeks pr egnant. This initial assessment/diagnostic orders/clinical plan/treatment(s) is/are subject to change based on patient's health status, clinical progression and re- assessment by fellow clinical providers in the ED. Further treatment and workup at subsequent clinical providers discretion. Patient/guardians urged not to elope from the ED as their condition may be serious if not clinically assessed and managed. Initial orders include: 1- Patient sent to [facility] for further evaluation and treatment 2- labs
[2019-05-27 18:33] VITALS: BP 108/54
[2019-05-27 18:52] LABS: Basophils % (Auto) 0.9 % (0.0-1.8); Eosinophils % (Auto) 0.7 % (0.0-4.3); Hematocrit 38.2 % (30.3-42.9); Hemoglobin 12.9 gm/dl (10.1-14.3); Lymphocytes # (Auto) 1.6 K/mm3 (1.2-5.4); Lymphocytes % (Auto) 28.8 % (13.4-35.0); Mean Corpuscular HGB Conc 34 % (30-34); Mean Corpuscular Volume 85 fl (79-97); Monocytes # (Auto) 0.5 K/mm3 (0.0-0.8); Platelet Count 242 K/mm3 (140-440); Red Blood Count 4.52 M/mm3 (3.65-5.03); Red Cell Distribution Width 14.3 % (13.2-15.2)
[2019-05-27 19:12] LABS: BUN/Creatinine Ratio 14; Blood Urea Nitrogen 11 mg/dL (7-17); Calcium 9.8 mg/dL (8.4-10.2); Hemolysis Index 28
[2019-05-27] MEDS ORDERED: diphenhydrAMINE 50 MG/ML VIAL IV ONE (22:05)
[2019-05-27] MEDS ORDERED: LACTATED RINGERS 1,000 ML IV ONE (22:05)
[2019-05-27] MEDS ORDERED: METOCLOPRAMIDE 10 MG/2 ML INJ IV ONE (22:05)
--- NOTE | 2019-05-27 22:12 | Emergency Department Report ---
ED HPI - General Chief complaint: Nausea/Vomiting/Diarrhea Stated complaint: NAUSEA Time Seen by Provider: 05/27/19 18:24 Source: EMS Mode of arrival: Ambulatory Limitations: No Limitations - History of Present Illness Initial comments: 23-year-old -[place] female who is 7 weeks presents with complaints of nausea, vomiting, lower abdominal cramping, and spotting 1 week. Patient was diagnosed with via blood test here in ED 05/17/19, however she has not followed up with [facility] as instructed. She states she is vomiting 5-6 times daily when trying to eat. She denies any hematemesis/coffee ground emesis, stool changes, vaginal discharge, or dysuria. She rates her current pain as a 0/10 in severity. She also complains of intermittent dizziness when getting up from a seated position or from lying down that began today. She denies any headache, numbness/tingling, chest pain, shortness of breath, or swelling. MD Complaint: abdominal pain, vaginal bleeding, other - Related Data Previous Rx's Medication Instructions Recorded Last Taken Type Tobramycin 0.3% [Tobrex] 1 applicatio OS Q8HR #1 tube 03/27/19 Unknown Rx Promethazine HCl [Promethazine TAB] 12.5 mg PO [id number] PRN #15 tab 05/28/19 Unknown Rx Allergies Allergy/AdvReac Type Severity Reaction Status Date / Time Neuromuscular Blockers, Allergy Unknown Verified 07/29/14 17:57 Steroidal [Steroidal Neuromuscular Blockers] ED Review of Systems ROS: Stated complaint: NAUSEA Other details as noted in HPI Constitutional: denies: chills, fever Eyes: denies: vision change ENT: denies: throat pain Respiratory: denies: cough, shortness of breath Cardiovascular: denies: chest pain Gastrointestinal: abdominal pain, nausea, vomiting. denies: diarrhea, constipation, hematemesis, melena, hematochezia Genitourinary: denies: urgency, dysuria, frequency, hematuria, discharge Musculoskeletal: denies: back pain Skin: denies: rash, lesions Neurological: denies: headache, abnormal gait Hematological/Lymphatic: denies: easy bleeding, easy bruising ED Past Medical Hx - Past Medical History Hx Hypertension: No Hx CVA: No Hx Heart Attack/AMI: No Hx Congestive Heart Failure: Yes (pt Dx with Arrhythmias) Hx Diabetes: No Hx Deep Vein Thrombosis: No Hx Pulmonary Embolism: No Hx GERD: No Hx Liver Disease: No Hx Renal Disease: No Hx Sickle Cell Disease: No Hx Arthritis: No Hx Headaches / Migraines: No Hx Seizures: No Hx Kidney Stones: No Hx Psychiatric Treatment: No Hx Asthma: Yes (as a child) Hx COPD: No Hx HIV: No Additional medical history: 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 a- fib. Nystagmus - Surgical History Additional Surgical History: Cataracts removed as child - Social History Smoking Status: Never Smoker Substance Use Type: None - Medications Home Medications: Home Medications Medication Instructions Recorded Confirmed Last Taken Type Tobramycin 0.3% [Tobrex] 1 applicatio OS Q8HR #1 tube 03/27/19 Unknown Rx Promethazine HCl [Promethazine TAB] 12.5 mg PO [id number] PRN #15 tab 05/28/19 Unknown Rx ED Physical Exam - General Limitations: No Limitations General appearance: alert, in no apparent distress - Head Head exam: Present: atraumatic, normocephalic - Eye Eye exam: Present: normal appearance. Absent: scleral icterus - ENT ENT exam: Present: mucous membranes moist - Neck Neck exam: Present: normal inspection - Respiratory Respiratory exam: Present: normal lung sounds bilaterally. Absent: respiratory distress - Cardiovascular Cardiovascular Exam: Present: regular rate, normal rhythm. Absent: systolic murmur, diastolic murmur, rubs, gallop - GI/Abdominal GI/Abdominal exam: Present: soft, normal bowel sounds. Absent: distended, tenderness, guarding, rebound, rigid - Extremities Exam Extremities exam: Present: normal inspection. Absent: pedal edema, calf t enderness - Back Exam Back exam: Present: normal inspection - Neurological Exam Neurological exam: Present: alert, oriented X3 - Psychiatric Psychiatric exam: Present: normal affect, normal mood - Skin Skin exam: Present: warm, dry, intact, normal color. Absent: rash ED Course Vital Signs 05/27/19 05/27/19 18:28 18:32 Temperature 98.3 F 98.6 F Pulse Rate 65 Respiratory 16 16 Rate Blood Pressure 108/54 [Right] ED Medical Decision Making - Lab Data Result diagrams: 05/27/19 18:39 05/27/19 18:39 Lab Results 05/27/19 05/27/19 05/27/19 Range/Units 18:39 18:39 22:28 WBC 5.6 (4.5-11.0) K/mm3 RBC 4.52 (3.65-5.03) M/mm3 Hgb 12.9 (10.1-14.3) gm/dl Hct 38.2 (30.3-42.9) % MCV 85 (79-97) fl MCH 28 (28-32) pg MCHC 34 (30-34) % RDW 14.3 (13.2-15.2) % Plt Count 242 (140-440) K/mm3 Lymph % (Auto) 28.8 (13.4-35.0) % [place] % (Auto) 9.0 H (0.0-7.3) % Eos % (Auto) 0.7 (0.0-4.3) % Baso % (Auto) 0.9 (0.0-1.8) % Lymph # 1.6 (1.2-5.4) K/mm3 [place] # 0.5 (0.0-0.8) K/mm3 Eos # 0.0 (0.0-0.4) K/mm3 Baso # 0.0 (0.0-0.1) K/mm3 Seg Neutrophils % 60.6 (40.0-70.0) % Seg Neutrophils # 3.4 (1.8-7.7) K/mm3 Sodium 135 L (137-145) mmol/L Potassium 3.8 (3.6-5.0) mmol/L Chloride 98.7 (98-107) mmol/L Carbon Dioxide 22 (22-30) mmol/L Anion Gap 18 mmol/L BUN 11 (7-17) mg/dL Creatinine 0.8 (0.7-1.2) mg/dL Estimated GFR > 60 ml/min BUN/Creatinine Ratio 14 % Glucose 80 (65-100) mg/dL Calcium 9.8 (8.4-10.2) mg/dL HCG, Quant 79294 H (0-4) mIU/mL Urine Color (Yellow) Urine Turbidity (Clear) Urine pH (5.0-7.0) Ur Specific [place] (1.003-1.030) Urine Protein (Negative) mg/dL Urine Glucose (UA) (Negative) mg/dL Urine Ketones (Negative) mg/dL Urine Blood (Negative) Urine Nitrite (Negative) Urine Bilirubin (Negative) Urine Urobilinogen (<2.0) mg/dL Ur Leukocyte Esterase (Negative) Urine WBC (Auto) (0.0-6.0) /HPF Urine RBC (Auto) (0.0-6.0) /HPF U Epithel Cells (Auto) (0-13.0) /HPF Blood Type 05/27/19 05/28/19 Range/Units 22:46 03:10 WBC (4.5-11.0) K/mm3 RBC (3.65-5.03) M/mm3 Hgb (10.1-14.3) gm/dl Hct (30.3-42.9) % MCV (79-97) fl MCH (28-32) pg MCHC (30-34) % RDW (13.2-15.2) % Plt Count (140-440) K/mm3 Lymph % (Auto) (13.4-35.0) % [place] % (Auto) (0.0-7.3) % Eos % (Auto) (0.0-4.3) % Baso % (Auto) (0.0-1.8) % Lymph # (1.2-5.4) K/mm3 [place] # (0.0-0.8) K/mm3 Eos # (0.0-0.4) K/mm3 Baso # (0.0-0.1) K/mm3 Seg Neutrophils % (40.0-70.0) % Seg Neutrophils # (1.8-7.7) K/mm3 Sodium (137-145) mmol/L Potassium (3.6-5.0) mmol/L Chloride (98-107) mmol/L Carbon Dioxide (22-30) mmol/L Anion Gap mmol/L BUN (7-17) mg/dL Creatinine (0.7-1.2) mg/dL Estimated GFR ml/min BUN/Creatinine Ratio % Glucose (65-100) mg/dL Calcium (8.4-10.2) mg/dL HCG, Quant (0-4) mIU/mL Urine Color Yellow (Yellow) Urine Turbidity Clear (Clear) Urine pH 6.0 (5.0-7.0) Ur Specific [place] 1.011 (1.003-1.030) Urine Protein <15 mg/dl (Negative) mg/dL Urine Glucose (UA) Neg (Negative) mg/dL Urine Ketones Tr (Negative) mg/dL Urine Blood Neg (Negative) Urine Nitrite Neg (Negative) Urine Bilirubin Neg (Negative) Urine Urobilinogen < 2.0 (<2.0) mg/dL Ur Leukocyte Esterase Neg (Negative) Urine WBC (Auto) 1.0 (0.0-6.0) /HPF Urine RBC (Auto) 3.0 (0.0-6.0) /HPF U Epithel Cells (Auto) 1.0 (0-13.0) /HPF Blood Type B POSITIVE - Radiology Data Radiology results: report reviewed US OB <= 14 weeks fetus, US OB transvaginal, US OB <= 14 wk fetus add gest INDICATION / CLINICAL INFORMATION: pain and bleeding. COMPARISON: Ultrasound 05/15/19 FINDINGS: Transabdominal and transvaginal imaging was performed. When is noted. Twin A: No sign can pole or visualized. [place]-rump length is 6.3 mm (6 weeks, 3 days). heart rate is 123. Twin B yolk sac and pole or visualized. [place]-rump length is 5.5 mm (6 weeks, 2 days). Heart rate is 118. There are 2 cysts in the right ovary. Left ovary is unremarkable. Trace free fluid is noted. IMPRESSION: 1. Viable twin , as above. 2. There are 2 simple cysts in the right ovary, the larger measures 3.2 cm in maximum diameter. - Medical Decision Making 23-year-old -[place] female who is 7 weeks presents with complaints of nausea, vomiting, lower abdominal cramping, and spotting 1 week. No tenderness of abdomen noted on exam. UA is negative for infection. Labs are WNL. Patient is tolerating foods and fluids orally. Ultrasound shows viable twin at 6 weeks 2 days and 6 weeks 3 days. Patient is nontoxic-appearing and stable for discharge home. Recommend follow-up with [facility] within 1-2 days. Discussed very strict return precautions in detail with patient who verbalizes understanding. Critical care attestation.: If time is entered above; I have spent that time in minutes in the direct care of this critically ill patient, excluding procedure time. ED Disposition Clinical Impression: Nausea/vomiting in , Twins, 1st trimester screening Disposition: DC-01 TO HOME OR SELFCARE Is pt being admited?: No Condition: Stable Instructions: (ED) Prescriptions: Promethazine HCl [Promethazine TAB] 12.5 mg PO [id number] PRN #15 tab PRN Reason: Nausea Referrals: DARIN TITUS MD [Staff Physician] - 2-3 Days
--- NOTE | 2019-05-28 00:36 | Ultrasound Report ---
US OB <= 14 weeks fetus, US OB transvaginal, US OB <= 14 wk fetus add gest INDICATION / CLINICAL INFORMATION: pain and bleeding. COMPARISON: Ultrasound 05/15/19 FINDINGS: Transabdominal and transvaginal imaging was performed. When is noted. Twin A: No sign can pole or visualized. [place]-rump length is 6.3 mm (6 weeks, 3 days). he art rate is 123. Twin B yolk sac and pole or visualized. [place]-rump length is 5.5 mm (6 weeks, 2 days). Heart ra te is 118. There are 2 cysts in the right ovary. Left ovary is unremarkable. Trace free fluid is noted. IMPRESSION: 1. Viable twin , as above. 2. There are 2 simple cysts in the right ovary, the larger measures 3.2 cm in maximum diameter. Signer Name: Maury Turner MD Signed: 05/28/2019 12:32 AM Workstation Name: [id number]
--- NOTE | 2019-05-28 00:36 | Ultrasound Report ---
US OB <= 14 weeks fetus, US OB transvaginal, US OB <= 14 wk fetus add gest INDICATION / CLINICAL INFORMATION: pain and bleeding. COMPARISON: Ultrasound 05/15/19 FINDINGS: Transabdominal and transvaginal imaging was performed. When is noted. Twin A: No sign can pole or visualized. [place]-rump length is 6.3 mm (6 weeks, 3 days). he art rate is 123. Twin B yolk sac and pole or visualized. [place]-rump length is 5.5 mm (6 weeks, 2 days). Heart ra te is 118. There are 2 cysts in the right ovary. Left ovary is unremarkable. Trace free fluid is noted. IMPRESSION: 1. Viable twin , as above. 2. There are 2 simple cysts in the right ovary, the larger measures 3.2 cm in maximum diameter. Signer Name: Maury Turner MD Signed: 05/28/2019 12:32 AM Workstation Name: [id number]
[2019-05-28 03:52] LABS: Bilirubin,Urine NEG (Negative); Blood,Urine NEG (Negative); Color,Urine Yellow (Yellow); Protein,Urine <15 mg/dL mg/dL (Negative); Urobilinogen,Urine < 2.0 mg/dL (<2.0)
== END 2019-05-28 05:03 | disposition home or self-care (01) ==
LOC: ED 17:59
DX: O30.001 Twin pregnancy, unspecified number of placenta and unspecified number of amniotic sacs, first trimester (principal); O21.9 Vomiting of pregnancy, unspecified; R10.30 Lower abdominal pain, unspecified; Z79.899 Other long term (current) drug therapy; Z88.8 Allergy status to other drugs, medicaments and biological substances; Z3A.01 Less than 8 weeks gestation of pregnancy
CPT/HCPCS: 36415; 76801; 76802; 76817; 80048; 81001; 84702; 85025; 86900; 86901; 96361; 96374; 96375; 99284; J1200; J2765; J7120

== ENCOUNTER 2019-08-28 05:32 | Outpatient (CLI) | payer MEDICAID ==
[2019-08-28] MEDS ORDERED: LACTATED RINGERS 1,000 ML IV ONE (06:07)
[2019-08-28 06:47] LABS: Bilirubin,Urine NEG (Negative); Blood,Urine NEG (Negative); Color,Urine Yellow (Yellow); Mucus,Urine FEW /HPF; Protein,Urine <15 mg/dL mg/dL (Negative)
[2019-08-28] MEDS ORDERED: ONDANSETRON 4 MG/2 ML INJ IV NR (07:24)
[2019-08-28 09:41] VITALS: BP 112/62
== END 2019-08-28 09:57 | disposition home or self-care (01) ==
LOC: TRG 05:32 → APU 05:33 → TRG 09:57
PROVIDERS: ATTEND Obstetrics & Gynecology
DX: O26.892 Other specified pregnancy related conditions, second trimester (principal); R10.30 Lower abdominal pain, unspecified; O47.02 False labor before 37 completed weeks of gestation, second trimester; O99.512 Diseases of the respiratory system complicating pregnancy, second trimester; J45.909 Unspecified asthma, uncomplicated; O99.412 Diseases of the circulatory system complicating pregnancy, second trimester; I48.91 Unspecified atrial fibrillation; Z3A.20 20 weeks gestation of pregnancy
CPT/HCPCS: 81001; 96361; 96365; J2405; J7120; 96360; 96374

== ENCOUNTER 2019-09-01 02:23 | Outpatient (CLI) | payer MEDICAID ==
[2019-09-01] MEDS ORDERED: LACTATED RINGERS 1,000 ML ONE (03:03)
[2019-09-01 03:13] LABS: Basophils % (Auto) 0.3 % (0.0-1.8); Eosinophils % (Auto) 0.7 % (0.0-4.3); Hematocrit 29.8 % (30.3-42.9); Hemoglobin 10.1 gm/dl (10.1-14.3); Lymphocytes # (Auto) 1.6 K/mm3 (1.2-5.4); Lymphocytes % (Auto) 27.6 % (13.4-35.0); Mean Corpuscular HGB Conc 34 % (30-34); Mean Corpuscular Volume 86 fl (79-97); Monocytes # (Auto) 0.5 K/mm3 (0.0-0.8); Monocytes % (Auto) 9.5 % (0.0-7.3); Platelet Count 227 K/mm3 (140-440); Red Blood Count 3.47 M/mm3 (3.65-5.03); Red Cell Distribution Width 14.1 % (13.2-15.2)
[2019-09-01 03:43] LABS: Alanine Aminotransferase 8 units/L (7-56); Albumin 3.7 g/dL (3.9-5); BUN/Creatinine Ratio 11; Blood Urea Nitrogen 8 mg/dL (7-17); Calcium 8.8 mg/dL (8.4-10.2); Hemolysis Index 3
== END 2019-09-01 03:56 | disposition home or self-care (01) ==
LOC: TRG 02:23
PROVIDERS: ATTEND Obstetrics & Gynecology
DX: O21.2 Late vomiting of pregnancy (principal); O30.002 Twin pregnancy, unspecified number of placenta and unspecified number of amniotic sacs, second trimester; O99.332 Smoking (tobacco) complicating pregnancy, second trimester; F17.200 Nicotine dependence, unspecified, uncomplicated; Z3A.20 20 weeks gestation of pregnancy
CPT/HCPCS: 36415; 59025; 80053; 85025; 96360; J7120

== ENCOUNTER 2019-10-04 19:18 | Outpatient (CLI) | payer MEDICAID ==
[2019-10-04 21:29] VITALS: BP 120/62
[2019-10-04] MEDS ORDERED: BUTORPHANOL 2 MG/1 ML INJ IM PRN (21:36)
== END 2019-10-05 03:40 | disposition home or self-care (01) ==
LOC: TRG 19:18 → APU 19:20 → TRG 10-05 03:40
PROVIDERS: ATTEND Obstetrics & Gynecology
DX: O99.352 Diseases of the nervous system complicating pregnancy, second trimester (principal); G43.909 Migraine, unspecified, not intractable, without status migrainosus; O26.892 Other specified pregnancy related conditions, second trimester; R10.9 Unspecified abdominal pain; R42 Dizziness and giddiness; O30.002 Twin pregnancy, unspecified number of placenta and unspecified number of amniotic sacs, second trimester; Z3A.25 25 weeks gestation of pregnancy
CPT/HCPCS: 59025; 96372; J0595

== ENCOUNTER 2019-10-10 13:43 | Outpatient (CLI) | payer MEDICAID ==
[2019-10-10] MEDS ORDERED: LACTATED RINGERS 1,000 ML IV ONE (14:09)
[2019-10-10] MEDS ORDERED: ONDANSETRON 4 MG/2 ML INJ IM ONE (14:10)
[2019-10-10 14:38] VITALS: BP 107/62
[2019-10-10] MEDS ORDERED: LACTATED RINGERS 1,000 ML IV SCH (17:00)
== END 2019-10-10 19:28 | disposition home or self-care (01) ==
LOC: APU 13:43 → TRG 13:43
PROVIDERS: ATTEND Obstetrics & Gynecology
DX: O21.2 Late vomiting of pregnancy (principal); O30.002 Twin pregnancy, unspecified number of placenta and unspecified number of amniotic sacs, second trimester; O32.1XX0 Maternal care for breech presentation, not applicable or unspecified; O47.02 False labor before 37 completed weeks of gestation, second trimester; Z3A.26 26 weeks gestation of pregnancy
CPT/HCPCS: 59025; 76815; 96360; 96372; J2405; J7120; 96361

== ENCOUNTER 2019-11-02 10:44 | Outpatient (CLI) | payer MEDICAID ==
[2019-11-02] MEDS ORDERED: ONDANSETRON 4 MG/2 ML INJ IV ONE (11:43)
[2019-11-02 11:44] LABS: Bilirubin,Urine NEG (Negative); Blood,Urine NEG (Negative); Color,Urine Yellow (Yellow); Mucus,Urine 1+ /HPF; Urobilinogen,Urine < 2.0 mg/dL (<2.0)
[2019-11-02 11:58] LABS: Amphetamine Screen,Urine PRESUMPTIVE NEGATIVE; Benzodiazepines Screen,Urine PRESUMPTIVE NEGATIVE; Cannabinoid Screen,Urine PRESUMPTIVE NEGATIVE; Cocaine Screen,Urine PRESUMPTIVE NEGATIVE; Methadone Screen,Urine PRESUMPTIVE NEGATIVE; Opiate Screen,Urine PRESUMPTIVE NEGATIVE
[2019-11-02] MEDS ORDERED: LACTATED RINGERS 1,000 ML IV SCH (12:00)
[2019-11-02 12:12] VITALS: BP 105/54
[2019-11-02 13:31] LABS: Alanine Aminotransferase 10 units/L (7-56); Albumin 3.3 g/dL (3.9-5); BUN/Creatinine Ratio 7; Blood Urea Nitrogen 5 mg/dL (7-17); Calcium 8.6 mg/dL (8.4-10.2); Hemolysis Index 24
--- NOTE | 2019-11-02 13:57 | Ultrasound Report ---
ULTRASOUND OBSTETRIC LIMITED ULTRASOUND BIOPHYSICAL PROFILE INDICATION / CLINICAL INFORMATION: Evaluate well-being of twin . COMPARISON: OB ultrasound from 10/10/2019. FINDINGS: TWIN A: BREATHING MOVEMENT = 2 GROSS BODY MOVEMENT = 2 TONE = 2 QUALITATIVE AMNIOTIC FLUID VOLUME = 2 TOTAL BIOPHYSICAL SCORE = 8/8 AMNIOTIC FLUID INDEX (cm) = not measured. PRESENTATION: Cephalic. HEART RATE (beats per minute): 142 TWIN B: BREATHING MOVEMENT = 2 GROSS BODY MOVEMENT = 2 TONE = 2 QUALITATIVE AMNIOTIC FLUID VOLUME = 2 TOTAL BIOPHYSICAL SCORE = 8/8 AMNIOTIC FLUID INDEX (cm) = not measured. PRESENTATION: Breech. HEART RATE (beats per minute): 140 ADDITIONAL FINDINGS: None. IMPRESSION: 1. Twin A Biophysical Score = 8/8 2.Twin B Biophysical Score = 8/8 Signer Name: Georges Barber MD Signed: 11/02/2019 1:53 PM Workstation Name: [id number]
--- NOTE | 2019-11-02 14:50 | Event Note ---
Date: 11/02/19 I discussed patient with her nurse, Talia CABRAL. Her urinalysis was reviewed and the urine culture and sensitivity was requested/ordered. Antibiotics will be called into the patient's pharmacy for her to begin to take. Patient was instructed to follow-up with her regular [facility]ENEFITS MANAGER as soon as possible in no later than Tuesday November 05, 2019.
== END 2019-11-02 15:02 | disposition home or self-care (01) ==
LOC: TRG 10:44 → APU 10:48 → TRG 15:02
PROVIDERS: ATTEND Obstetrics & Gynecology
DX: O21.2 Late vomiting of pregnancy (principal); O30.003 Twin pregnancy, unspecified number of placenta and unspecified number of amniotic sacs, third trimester; O47.03 False labor before 37 completed weeks of gestation, third trimester; Z3A.29 29 weeks gestation of pregnancy
CPT/HCPCS: 36415; 59025; 76819; 80053; 80307; 81001; 87086; 96361; 96374; J2405; J7120; 96360

== ENCOUNTER 2019-11-09 01:00 | Outpatient (CLI) | payer MEDICAID ==
--- NOTE | 2019-11-09 00:38 | Emergency Department Report ---
ED General Adult HPI - General Chief complaint: Nausea/Vomiting/Diarrhea Stated complaint: CHEST PAIN/30WKS PUI?: No Time Seen by Provider: 11/09/19 00:20 Source: EMS Mode of arrival: Stretcher Limitations: No Limitations - History of Present Illness Initial comments: Patient is a 24-year-old female that presents emergency room with complaints of chest pain, fall and contractions. Patient states she is 30 weeks . Patient states she slipped and fell and she developed muscular chest pain after the fall. Patient states the chest pain is on the right side. Patient states her chest pain started at 8:00 this morning. Patient states that her chest pain has resolved. Patient states the chest pain is better with rest and worse with movement. Patient states the pain is also worse with palpation. Patient states she is been having nausea and vomiting x3 days. Patient denies blood in her vomitus. Patient states her contractions are a couple times an hour. Patient denies hitting her head. Patient denies loss of consciousness. Patient denies dizziness. Patient denies visual changes. Patient denies falling on her abdomen. Patient states she just slipped and jerked her body. Patient denies recent travel. Patient denies recent international travel. Patient denies exposure to the novel coronavirus. Patient denies sick contacts. Patient denies fever and chills. Patient denies cough. Patient denies diarrhea. Patient denies coming in contact with anybody with symptoms of the novel coronavirus. -: Sudden Location: chest Severity scale (0 -10): 0 Quality: aching Consistency: constant Improves with: rest Worsens with: movement Associated Symptoms: chest pain, nausea/vomiting. denies: confusion, cough, diaphoresis, fever/chills, headaches, loss of appetite, malaise, rash, seizure, shortness of breath, syncope, weakness Treatments Prior to Arrival: none - Related Data Previous Rx's Medication Instructions Recorded Last Taken Type Tobramycin 0.3% [Tobrex] 1 applicatio OS Q8HR #1 tube 03/27/19 Unknown Rx Promethazine HCl [Promethazine TAB] 12.5 mg PO [id number] PRN #15 tab 05/28/19 Unknown Rx Amoxicillin [Trimox CAP] 500 mg PO Q8H 10 Days #30 capsule 07/27/19 Unknown Rx Nitrofurantoin [place]/M-Cryst 100 mg PO Q12HR #14 capsule 11/02/19 Unknown Rx [Macrobid CAP] Allergies Allergy/AdvReac Type Severity Reaction Status Date / Time Neuromuscular Blockers, Allergy Unknown Verified 07/29/14 17:57 Steroidal [Steroidal Neuromuscular Blockers] ED Review of Systems ROS: Stated complaint: CHEST PAIN/30WKS Other details as noted in HPI Constitutional: denies: chills, fever Eyes: denies: eye pain, eye discharge, vision change ENT: denies: ear pain, throat pain Respiratory: denies: cough, shortness of breath, wheezing Cardiovascular: chest pain. denies: palpitations Endocrine: no symptoms reported Gastrointestinal: abdominal pain, nausea, vomiting. denies: diarrhea Genitourinary: denies: urgency, dysuria, discharge Musculoskeletal: denies: back pain, joint swelling, arthralgia Skin: denies: rash, lesions Neurological: denies: headache, weakness, paresthesias Psychiatric: denies: anxiety, depression Hematological/Lymphatic: denies: easy bleeding, easy bruising ED Past Medical Hx - Past Medical History Previous Medical History?: Yes Hx Hypertension: No Hx CVA: No Hx Heart Attack/AMI: No Hx Congestive Heart Failure: Yes (pt Dx with Arrhythmias) Hx Diabetes: No Hx Deep Vein Thrombosis: No Hx Pulmonary Embolism: No Hx GERD: No Hx Liver Disease: No Hx Renal Disease: No Hx Sickle Cell Disease: No Hx Arthritis: No Hx Headaches / Migraines: No Hx Seizures: No Hx Kidney Stones: No Hx Psychiatric Treatment: No Hx Asthma: No Hx COPD: No Hx HIV: No Additional medical history: 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 a- fib. Nystagmus - Surgical History Past Surgical History?: Yes Additional Surgical History: Cataracts removed as child - Family History Family history: no significant - Social History Smoking Status: Never Smoker Substance Use Type: None - Medications Home Medications: Home Medications Medication Instructions Recorded Confirmed Last Taken Type Tobramycin 0.3% [Tobrex] 1 applicatio OS Q8HR #1 tube 03/27/19 Unknown Rx Promethazine HCl [Promethazine TAB] 12.5 mg PO [id number] PRN #15 tab 05/28/19 Unknown Rx Amoxicillin [Trimox CAP] 500 mg PO Q8H 10 Days #30 capsule 07/27/19 Unknown Rx Nitrofurantoin [place]/M-Cryst 100 mg PO Q12HR #14 capsule 11/02/19 Unknown Rx [Macrobid CAP] ED Physical Exam - General Limitations: No Limitations General appearance: alert, in no apparent distress - Head Head exam: Present: atraumatic, normocephalic - Eye Eye exam: Present: normal appearance, PERRL Pupils: Present: normal accommodation - ENT ENT exam: Present: mucous membranes moist - Neck Neck exam: Present: normal inspection - Respiratory Respiratory exam: Present: normal lung sounds bilaterally, chest wall tenderness (Palpation of the right chest reproduces symptoms. Right chest tenderness). Absent: respiratory distress, wheezes, rales - Cardiovascular Cardiovascular Exam: Present: regular rate, normal rhythm. Absent: systolic murmur, diastolic murmur, rubs, gallop - GI/Abdominal GI/Abdominal exam: Present: soft, distended (Gravid abdomen noted), normal bowel sounds. Absent: tenderness - Extremities Exam Extremities exam: Present: normal inspection - Back Exam Back exam: Present: normal inspection - Neurological Exam Neurological exam: Present: alert, oriented X3 - Psychiatric Psychiatric exam: Present: normal affect, normal mood - Skin Skin exam: Present: warm, dry, intact, normal color. Absent: rash ED Course Vital Signs 11/09/19 11/09/19 00:21 00:24 Temperature 98.6 F Pulse Rate 84 Respiratory 18 18 Rate Blood Pressure 109/56 O2 Sat by Pulse 96 Oximetry - Reevaluation(s) Reevaluation #1: My initial evaluation done. Patient is stable for discharge. Patient is medically cleared from an emergency room standpoint. Patient chest pain is musculoskeletal. Patient is experiencing contractions in the ER. Patient will be discharged from the ER and sent to the [facility] floor. 11/09/19 00:39 ED Medical Decision Making - Medical Decision Making Patient is a 24-year-old female that presents emergency room with complaints of right-sided chest pain after a slip at home. Patient did not have any fall or any injuries. Patient only complained of chest pain and intermittent contractions in her abdomen. Patient is 30 weeks . Patient is medically cleared from emergency room standpoint does not require any further emergency medical services. Patient's chest pain is consistent with costochondritis versus chest wall sprain. Patient instructed to take Tylenol as needed for this. Due to the fact the patient is 30 weeks and she is having intermittent contractions abdominal pain, the patient was sent to our [facility], labor and delivery floor for further evaluation and further medical clearance from an obstetric standpoint. Patient given discharge instructions. Patient is stable for discharge. - Differential Diagnosis Costochondritis, chest wall sprain, chest wall pain, nausea, contractions Critical care attestation.: If time is entered above; I have spent that time in minutes in the direct care of this critically ill patient, excluding procedure time. ED Disposition Clinical Impression: Right-sided chest pain, Chest wall pain, Premature contraction Sprain of chest wall Qualifiers: Encounter type: initial encounter Qualified Code(s): S23.8XXA - Sprain of other specified parts of thorax, initial encounter Abdominal pain Qualifiers: Abdominal location: generalized Qualified Code(s): R10.84 - Generalized abdominal pain Qualifiers: Weeks of gestation: 30 weeks Qualified Code(s): Z3A.30 - 30 weeks gestation of Disposition: DC-01 TO HOME OR SELFCARE Is pt being admited?: No Does the pt Need Aspirin: No Condition: Stable Time of Disposition: 00:42
[2019-11-09] MEDS ORDERED: LACTATED RINGERS 1,000 ML IV ONE (02:32)
[2019-11-09] MEDS ORDERED: ONDANSETRON 4 MG/2 ML INJ IV ONE (02:35)
[2019-11-09 05:00] VITALS: BP 117/59
== END 2019-11-09 04:42 | disposition home or self-care (01) ==
LOC: TRG 01:00 → EDSTATUS 01:01 → APU 01:28 → TRG 04:42
PROVIDERS: ATTEND Obstetrics & Gynecology
DX: O21.2 Late vomiting of pregnancy (principal); O26.893 Other specified pregnancy related conditions, third trimester; R07.9 Chest pain, unspecified; O30.003 Twin pregnancy, unspecified number of placenta and unspecified number of amniotic sacs, third trimester; Z3A.30 30 weeks gestation of pregnancy; W10.9XXA Fall (on) (from) unspecified stairs and steps, initial encounter; Y93.89 Activity, other specified; Y92.89 Other specified places as the place of occurrence of the external cause; Y99.8 Other external cause status
CPT/HCPCS: 96361; 96374; J2405; J7120; 96360

== ENCOUNTER 2020-02-01 17:29 | Emergency (ER) | payer MEDICAID ==
[2020-02-01] MEDS ORDERED: diphenhydrAMINE 25 MG CAP PO ONE (19:52)
[2020-02-01] MEDS ORDERED: MECLIZINE 25 MG TAB PO ONE (19:52)
[2020-02-01] MEDS ORDERED: METOCLOPRAMIDE 10 MG TAB PO ONE (19:52)
[2020-02-01] MEDS ORDERED: ACETAMINOPHEN 325 MG TAB PO ONE (19:52)
--- NOTE | 2020-02-01 20:19 | Emergency Department Report ---
ED General Adult HPI - General Chief complaint: Chest Pain Stated complaint: DIZZINESS CHEST PAINS Time Seen by Provider: 02/01/20 19:17 Source: patient Mode of arrival: Ambulatory Limitations: No Limitations - History of Present Illness Initial comments: Patient is a 24-year-old female presents emergency room with complaints of nausea and dizziness that began 3 weeks ago. She states that she has intermittent episodes of vomiting. She states that it feels like the room is spinning. She states that she only experiences it with movements. she states that she also occasionally gets headaches. She denies any diarrhea, dysuria, vaginal discharge or irritation, hematochezia, hematemesis, melena, fever, cough, shortness of breath, chest pain, abdominal pain, numbness, unilateral weakness. She states that she has been having normal bowel movements. She states that she has a past medical history of an episode of A. fib she reports but she is not on any medications. 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 She has an allergy to neuromuscular blockers. She states her last menstrual cycle was April 2019 as she has a Nexplanon for control. She does not have a PCP. - Related Data Previous Rx's Medication Instructions Recorded Last Taken Type Tobramycin 0.3% [Tobrex] 1 applicatio OS Q8HR #1 tube 03/27/19 Unknown Rx Promethazine HCl [Promethazine TAB] 12.5 mg PO [id number] PRN #15 tab 05/28/19 Unknown Rx Amoxicillin [Trimox CAP] 500 mg PO Q8H 10 Days #30 capsule 07/27/19 Unknown Rx Nitrofurantoin [place]/M-Cryst 100 mg PO Q12HR #14 capsule 11/02/19 Unknown Rx [Macrobid CAP] Butalb/Acetaminophen/Caffeine 1 cap PO Q8HR PRN #10 cap 02/01/20 Unknown Rx [Fioricet 50-300-40 mg CAP] Meclizine [Antivert] 25 mg PO Q8HR PRN #14 tablet 02/01/20 Unknown Rx Allergies Allergy/AdvReac Type Severity Reaction Status Date / Time Neuromuscular Blockers, Allergy Unknown Verified 07/29/14 17:57 Steroidal [Steroidal Neuromuscular Blockers] ED Review of Systems ROS: Stated complaint: DIZZINESS CHEST PAINS Other details as noted in HPI Comment: All other systems reviewed and negative ED Past Medical Hx - Past Medical History Previous Medical History?: Yes Hx Hypertension: No Hx CVA: No Hx Heart Attack/AMI: No Hx Congestive Heart Failure: Yes (pt Dx with Arrhythmias) Hx Diabetes: No Hx Deep Vein Thrombosis: No Hx Pulmonary Embolism: No Hx GERD: No Hx Liver Disease: No Hx Renal Disease: No Hx Sickle Cell Disease: No Hx Arthritis: No Hx Headaches / Migraines: No Hx Seizures: No Hx Kidney Stones: No Hx Psychiatric Treatment: No Hx Asthma: No Hx COPD: No Hx HIV: No Additional medical history: 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 a- fib. Nystagmus - Surgical History Past Surgical History?: No Additional Surgical History: Cataracts removed as child - Social History Smoking Status: Never Smoker Substance Use Type: None - Medications Home Medications: Home Medications Medication Instructions Recorded Confirmed Last Taken Type Tobramycin 0.3% [Tobrex] 1 applicatio OS Q8HR #1 tube 03/27/19 Unknown Rx Promethazine HCl [Promethazine TAB] 12.5 mg PO [id number] PRN #15 tab 05/28/19 Unknown Rx Amoxicillin [Trimox CAP] 500 mg PO Q8H 10 Days #30 capsule 07/27/19 Unknown Rx Nitrofurantoin [place]/M-Cryst 100 mg PO Q12HR #14 capsule 11/02/19 Unknown Rx [Macrobid CAP] Butalb/Acetaminophen/Caffeine 1 cap PO Q8HR PRN #10 cap 02/01/20 Unknown Rx [Fioricet 50-300-40 mg CAP] Meclizine [Antivert] 25 mg PO Q8HR PRN #14 tablet 02/01/20 Unknown Rx ED Physical Exam - General Limitations: No Limitations General appearance: alert, in no apparent distress - Head Head exam: Present: atraumatic, normocephalic - ENT ENT exam: Present: mucous membranes moist - Respiratory Respiratory exam: Present: normal lung sounds bilaterally. Absent: respiratory distress, wheezes, rales, rhonchi, stridor, chest wall tenderness, accessory muscle use, decreased breath sounds, prolonged expiratory - Cardiovascular Cardiovascular Exam: Present: regular rate, normal rhythm, normal heart sounds. Absent: systolic murmur, diastolic murmur, rubs, gallop - Neurological Exam Neurological exam: Present: alert, oriented X3, normal gait, other (5/5 muscle strength in the BUE/BLE, sensation intact thorughout, no focal neuro deficit). Absent: motor sensory deficit - Psychiatric Psychiatric exam: Present: normal affect, normal mood - Skin Skin exam: Present: warm, dry, intact ED Course Vital Signs 02/01/20 02/01/20 17:54 22:15 Temperature 98 F 98.9 F Pulse Rate 67 62 Respiratory 16 16 Rate Blood Pressure 114/62 Blood Pressure 112/64 [Right] O2 Sat by Pulse 98 98 Oximetry ED Medical Decision Making - Lab Data Result diagrams: 02/01/20 19:54 02/01/20 19:54 Lab Results 02/01/20 02/01/20 02/01/20 Range/Units 19:54 19:54 19:54 WBC 3.7 L (4.5-11.0) K/mm3 RBC 4.27 (3.65-5.03) M/mm3 Hgb 11.7 (10.1-14.3) gm/dl Hct 35.8 (30.3-42.9) % MCV 84 (79-97) fl MCH 28 (28-32) pg MCHC 33 (30-34) % RDW 16.1 H (13.2-15.2) % Plt Count 209 (140-440) K/mm3 Lymph % (Auto) 50.0 H (13.4-35.0) % [place] % (Auto) 8.1 H (0.0-7.3) % Eos % (Auto) 1.2 (0.0-4.3) % Baso % (Auto) 0.7 (0.0-1.8) % Lymph # (Auto) 1.8 (1.2-5.4) K/mm3 [place] # (Auto) 0.3 (0.0-0.8) K/mm3 Eos # (Auto) 0.0 (0.0-0.4) K/mm3 Baso # (Auto) 0.0 (0.0-0.1) K/mm3 Seg Neutrophils % 40.0 (40.0-70.0) % Seg Neutrophils # 1.5 L (1.8-7.7) K/mm3 Sodium 140 (137-145) mmol/L Potassium 4.0 (3.6-5.0) mmol/L Chloride 102.9 (98-107) mmol/L Carbon Dioxide 25 (22-30) mmol/L Anion Gap 16 mmol/L BUN 10 (7-17) mg/dL Creatinine 0.7 (0.6-1.2) mg/dL Estimated GFR > 60 ml/min BUN/Creatinine Ratio 14 % Glucose 81 (65-100) mg/dL Calcium 9.2 (8.4-10.2) mg/dL Magnesium 1.90 (1.7-2.3) mg/dL Total Bilirubin 0.20 (0.1-1.2) mg/dL AST 15 (5-40) units/L ALT 10 (7-56) units/L Alkaline Phosphatase 48 (35-129) units/L Total Creatine Kinase 96 (30-135) units/L Total Protein 6.9 (6.3-8.2) g/dL Albumin 4.1 (3.9-5) g/dL Albumin/Globulin Ratio 1.5 % TSH 0.830 (0.270-4.200) mlU/mL Urine Color (Yellow) Urine Turbidity (Clear) Urine pH (5.0-7.0) Ur Specific [place] (1.003-1.030) Urine Protein (Negative) mg/dL Urine Glucose (UA) (Negative) mg/dL Urine Ketones (Negative) mg/dL Urine Blood (Negative) Urine Nitrite (Negative) Urine Bilirubin (Negative) Urine Urobilinogen (<2.0) mg/dL Ur Leukocyte Esterase (Negative) Urine WBC (Auto) (0.0-6.0) /HPF Urine RBC (Auto) (0.0-6.0) /HPF U Epithel Cells (Auto) (0-13.0) /HPF Urine Mucus /HPF Urine Opiates Screen Urine Methadone Screen Ur Barbiturates Screen Ur Phencyclidine Scrn Ur Amphetamines Screen U Benzodiazepines Scrn Urine Cocaine Screen U Marijuana (THC) Screen Drugs of Abuse Note 02/01/20 02/01/20 Range/Units 20:42 20:42 WBC (4.5-11.0) K/mm3 RBC (3.65-5.03) M/mm3 Hgb (10.1-14.3) gm/dl Hct (30.3-42.9) % MCV (79-97) fl MCH (28-32) pg MCHC (30-34) % RDW (13.2-15.2) % Plt Count (140-440) K/mm3 Lymph % (Auto) (13.4-35.0) % [place] % (Auto) (0.0-7.3) % Eos % (Auto) (0.0-4.3) % Baso % (Auto) (0.0-1.8) % Lymph # (Auto) (1.2-5.4) K/mm3 [place] # (Auto) (0.0-0.8) K/mm3 Eos # (Auto) (0.0-0.4) K/mm3 Baso # (Auto) (0.0-0.1) K/mm3 Seg Neutrophils % (40.0-70.0) % Seg Neutrophils # (1.8-7.7) K/mm3 Sodium (137-145) mmol/L Potassium (3.6-5.0) mmol/L Chloride (98-107) mmol/L Carbon Dioxide (22-30) mmol/L Anion Gap mmol/L BUN (7-17) mg/dL Creatinine (0.6-1.2) mg/dL Estimated GFR ml/min BUN/Creatinine Ratio % Glucose (65-100) mg/dL Calcium (8.4-10.2) mg/dL Magnesium (1.7-2.3) mg/dL Total Bilirubin (0.1-1.2) mg/dL AST (5-40) units/L ALT (7-56) units/L Alkaline Phosphatase (35-129) units/L Total Creatine Kinase (30-135) units/L Total Protein (6.3-8.2) g/dL Albumin (3.9-5) g/dL Albumin/Globulin Ratio % TSH (0.270-4.200) mlU/mL Urine Color Yellow (Yellow) Urine Turbidity Clear (Clear) Urine pH 7.0 (5.0-7.0) Ur Specific [place] 1.019 (1.003-1.030) Urine Protein <15 mg/dl (Negative) mg/dL Urine Glucose (UA) Neg (Negative) mg/dL Urine Ketones Neg (Negative) mg/dL Urine Blood Neg (Negative) Urine Nitrite Neg (Negative) Urine Bilirubin Neg (Negative) Urine Urobilinogen 2.0 (<2.0) mg/dL Ur Leukocyte Esterase Neg (Negative) Urine WBC (Auto) 1.0 (0.0-6.0) /HPF Urine RBC (Auto) < 1.0 (0.0-6.0) /HPF U Epithel Cells (Auto) 5.0 (0-13.0) /HPF Urine Mucus Few /HPF Urine Opiates Screen Presumptive negative Urine Methadone Screen Presumptive negative Ur Barbiturates Screen Presumptive negative Ur Phencyclidine Scrn Presumptive negative Ur Amphetamines Screen Presumptive negative U Benzodiazepines Scrn Presumptive negative Urine Cocaine Screen Presumptive negative U Marijuana (THC) Screen Presumptive negative Drugs of Abuse Note Disclamer Vital Signs 02/01/20 02/01/20 17:54 22:15 Temperature 98 F 98.9 F Pulse Rate 67 62 Respiratory 16 16 Rate Blood Pressure 114/62 Blood Pressure 112/64 [Right] O2 Sat by Pulse 98 98 Oximetry - EKG Data EKG shows normal: sinus rhythm, axis, intervals, ST-T waves Rate: normal - EKG Data 02/01/20 21:48 incomplete RBBB low voltage no STEMI - Radiology Data Radiology results: report reviewed CT head/brain wo con INDICATION / CLINICAL INFORMATION: 24 years Female; headache, dizziness. TECHNIQUE: Routine CT head without contrast. All CT scans at this location are performed using CT dose reduction for ALARA by means of automated exposure control. COMPARISON: None. FINDINGS: BRAIN / INTRACRANIAL CONTENTS: No acute hemorrhage, mass effect, midline shift, hydrocephalus, or acute, large territorial infarct. No chronic infarct or atrophy appreciated. No significant white matter abnormality. CRANIOCERVICAL JUNCTION: No significant abnormality. ORBITS: No significant abnormality of visualized orbits. SINUSES / MASTOIDS: No significant abnormality in the visualized paranasal sinuses or mastoid air cells. ADDITIONAL FINDINGS: None. IMPRESSION: 1. No focal mass, hemorrhage, hydrocephalus, or acute, large territorial infarct. Signer Name: Fred Uriostegui MD, III Signed: 02/01/2020 9:27 PM Workstation Name: [id number] Transcribed By: HR Dictated By: Fred Uriostegui MD Electronically Authenticated By: Fred Uriostegui MD Signed Date/Time: 02/01/202126 DD/ 25 TD/TT: - Medical Decision Making Patient is a 24-year-old female presents emergency room with complaints of nausea and dizziness that began 3 weeks ago. She states that she has intermittent episodes of vomiting. She states that it feels like the room is spinning. She states that she only experiences it with movements. she states that she also occasionally gets headaches. She denies any diarrhea, dysuria, vaginal discharge or irritation, hematochezia, hematemesis, melena, fever, cough, shortness of breath, chest pain, abdominal pain, numbness, unilateral weakness. She states that she has been having normal bowel movements. She states that she has a past medical history of an episode of A. fib she reports but she is not on any medications. 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 She has an allergy to neuromuscular blockers. She states her last menstrual cycle was April 2019 as she has a Nexplanon for control. She does not have a PCP. Vitals are normal. No focal neuro deficits on exam. EKG with incomplete right bundle branch block, low voltage, no STEMI or signs of ischemia. Labs are normal. UA is within normal limits. UDS is negative. urine is negative. CT head 1. No focal mass, hemorrhage, hydrocephalus, or acute, large territorial infarct. Patient given Reglan, Benadryl, Tylenol, meclizine and symptoms improved and patient was feeling better and ready to go home. Discussed all results with patient and answered questions. Patient given prescription for meclizine and Fioricet. Advised patient to please take medication as prescribed. Increase your water intake. Follow-up with a primary care doctor. Follow-up with your neurologist. Return to emergency room for any new or worsening symptoms. - Differential Diagnosis vertigo, LLOYD, electrolyte disturbance, anemia, UTI, mass, AVM Critical care attestation.: If time is entered above; I have spent that time in minutes in the direct care of this critically ill patient, excluding procedure time. ED Disposition Clinical Impression: Dizziness Nausea and vomiting Qualifiers: Vomiting type: unspecified Vomiting Intractability: non-intractable Qualified Code(s): R11.2 - Nausea with vomiting, unspecified Headache Qualifiers: Headache type: unspecified Headache chronicity pattern: acute headache Intractability: not intractable Qualified Code(s): R51 - Headache Disposition: DC- TO HOME OR SELFCARE Is pt being admited?: No Does the pt Need Aspirin: No Condition: Stable Instructions: Vertigo (ED), Dizziness (ED) Additional Instructions: please take medication as prescribed. Increase your water intake. Follow-up with a primary care doctor. Follow-up with your neurologist. Return to emergency room for any new or worsening symptoms. Prescriptions: Meclizine [Antivert] 25 mg PO Q8HR PRN #14 tablet PRN Reason: Vertigo Butalb/Acetaminophen/Caffeine [Fioricet 50-300-40 mg CAP] 1 cap PO Q8HR PRN #10 cap PRN Reason: headache Referrals: [facility] [Primary Care Provider] - 2-3 Days WAYNE CASTILLO MD [Staff Physician] - 2-3 Days COLE HESS MD [Staff Physician] - 2-3 Days VIPUL JORDAN MD [Referring] - 2-3 Days Print Language: SLOVAK
[2020-02-01 21:15] LABS: Alanine Aminotransferase 10 units/L (7-56); Albumin 4.1 g/dL (3.9-5); Basophils % (Auto) 0.7 % (0.0-1.8); Blood Urea Nitrogen 10 mg/dL (7-17); Calcium 9.2 mg/dL (8.4-10.2); Eosinophils % (Auto) 1.2 % (0.0-4.3); Hematocrit 35.8 % (30.3-42.9); Hemoglobin 11.7 gm/dl (10.1-14.3); Hemolysis Index 9; Lymphocytes # (Auto) 1.8 K/mm3 (1.2-5.4); Mean Corpuscular HGB Conc 33 % (30-34); Mean Corpuscular Volume 84 fl (79-97); Monocytes # (Auto) 0.3 K/mm3 (0.0-0.8); Monocytes % (Auto) 8.1 % (0.0-7.3); Platelet Count 209 K/mm3 (140-440); Red Blood Count 4.27 M/mm3 (3.65-5.03); Red Cell Distribution Width 16.1 % (13.2-15.2)
[2020-02-01 21:18] LABS: BUN/Creatinine Ratio 14
[2020-02-01 21:30] LABS: Bilirubin,Urine NEG (Negative); Blood,Urine NEG (Negative); Color,Urine Yellow (Yellow); Mucus,Urine FEW /HPF; Protein,Urine <15 mg/dL mg/dL (Negative); RBC,Urine < 1.0 /HPF (0.0-6.0)
--- NOTE | 2020-02-01 21:32 | Cat Scan Report ---
CT head/brain wo con INDICATION / CLINICAL INFORMATION: 24 years Female; headache, dizziness. TECHNIQUE: Routine CT head without contrast. All CT scans at this location are performed using CT dos e reduction for ALARA by means of automated exposure control. COMPARISON: None. FINDINGS: BRAIN / INTRACRANIAL CONTENTS: No acute hemorrhage, mass effect, midline shift, hydrocephalus, or acu te, large territorial infarct. No chronic infarct or atrophy appreciated. No significant white matter abnormality. CRANIOCERVICAL JUNCTION: No significant abnormality. ORBITS: No significant abnormality of visualized orbits. SINUSES / MASTOIDS: No significant abnormality in the visualized paranasal sinuses or mastoid air randee ls. ADDITIONAL FINDINGS: None. IMPRESSION: 1. No focal mass, hemorrhage, hydrocephalus, or acute, large territorial infarct. Signer Name: Fred Uriostegui MD, III Signed: 02/01/2020 9:27 PM Workstation Name: [email or web address] [email or web address] [id number]
[2020-02-01 21:36] LABS: Amphetamine Screen,Urine PRESUMPTIVE NEGATIVE; Benzodiazepines Screen,Urine PRESUMPTIVE NEGATIVE; Cannabinoid Screen,Urine PRESUMPTIVE NEGATIVE; Cocaine Screen,Urine PRESUMPTIVE NEGATIVE; Methadone Screen,Urine PRESUMPTIVE NEGATIVE; Opiate Screen,Urine PRESUMPTIVE NEGATIVE
[2020-02-01 21:56] LABS: HCG Qualitative,Urine Negative (Negative)
[2020-02-01 22:26] VITALS: BP 112/64
== END 2020-02-01 22:15 | disposition home or self-care (01) ==
LOC: ED 17:29
DX: R11.2 Nausea with vomiting, unspecified (principal); R42 Dizziness and giddiness; R51 Headache; I50.9 Heart failure, unspecified; I48.91 Unspecified atrial fibrillation; Z79.899 Other long term (current) drug therapy; Z88.8 Allergy status to other drugs, medicaments and biological substances; Z98.890 Other specified postprocedural states
CPT/HCPCS: 36415; 70450; 80053; 80307; 81001; 81025; 82550; 83735; 84443; 85025; 93005

== ENCOUNTER 2021-01-09 19:01 | Emergency (ER) | payer MEDICAID ==
[2021-01-09 19:31] VITALS: BP 104/49
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
--- NOTE | 2021-01-10 01:14 | Ultrasound Report ---
US OB <= 14 WK FETUS ADD GEST US OB TRANSVAGINAL INDICATION / CLINICAL INFORMATION: abdominal pain, 7 wks preg by dates. COMPARISON: None available. FINDINGS: Intrauterine gestational sac is seen with yolk sac and pole. [place]-rump length is 1.9 cm, 8 wee ks 3 days. Heart rate is 143. No subchorionic hemorrhage is seen. There are 2 left ovarian cysts. The larger measures 3.4 cm. Right ovary is unremarkable. IMPRESSION: 1. Single viable intrauterine with sonographic gestational age of 8 weeks, 3 days. 2. There are 2 left ovarian cysts. Signer Name: Maury Turner MD Signed: 01/10/2021 1:10 AM Workstation Name: [id number]
[2021-01-10] MEDS ORDERED: TETANUS,DIPH,PERTUSS(ACELL) VACCINE 0.5 ML SYRINGE IM ONE (01:24)
== END 2021-01-10 03:30 | disposition home or self-care (01) ==
LOC: ED 19:01
DX: O9A.211 Injury, poisoning and certain other consequences of external causes complicating pregnancy, first trimester (principal); S61.452A Open bite of left hand, initial encounter; Z3A.01 Less than 8 weeks gestation of pregnancy
CPT/HCPCS: 36415; 76801; 76802; 76817; 84702; 90471; 90715; 99284